=== PATIENT | male | born 1950 | race Caucasian/White ===

== ENCOUNTER 2019-07-21 08:01 | Outpatient (CLI) | payer OTHER, MEDICARE, SELFPAY ==
[2019-07-21 08:22] LABS: Hemoglobin A1C 8.2 % (<5.7)
[2019-07-21 08:25] LABS: Alanine Aminotransferase 29 U/L (4-50); Albumin Level 4.4 g/dL (3.5-5.1); Alkaline Phosphatase 57 U/L (38-126); Aspartate Amino Transferase 34 U/L (17-59); Bilirubin,Total 0.7 mg/dL (0.2-1.3); Blood Urea Nitrogen 13 mg/dL (9-20); Calcium 9.2 mg/dL (8.4-10.2); Carbon Dioxide 28 mmol/L (22-30); Chloride 100 mmol/L (98-107); Cholesterol 133 mg/dL (0-200); Estimated Glomerular Filt Rate > 60; Glucose 165 mg/dL (75-110); HDL Direct 43 mg/dL; Potassium 4.2 mmol/L (3.4-5.0); Sodium 136 mmol/L (137-145); Triglycerides 231 mg/dL (<150)
[2019-07-21 08:36] LABS: LDL Cholesterol Direct 59 mg/dL
== END 2019-07-21 08:02 | disposition home or self-care (01) ==
PROVIDERS: PCP Family Medicine; Visit Provider Family Medicine
DX: E11.65 Type 2 diabetes mellitus with hyperglycemia (principal); E11.9 Type 2 diabetes mellitus without complications; I10 Essential (primary) hypertension
CPT/HCPCS: 36415; 80053; 80061; 83036

== ENCOUNTER 2019-11-18 07:46 | Outpatient (CLI) | payer MEDICARE, SELFPAY ==
[2019-11-18 08:26] LABS: Alanine Aminotransferase 36 U/L (4-50); Albumin Level 4.2 g/dL (3.5-5.1); Alkaline Phosphatase 55 U/L (38-126); Anion Gap 8 mmol/L (8-16); Aspartate Amino Transferase 39 U/L (17-59); Bilirubin,Total 0.6 mg/dL (0.2-1.3); Blood Urea Nitrogen 14 mg/dL (9-20); Calcium 9.1 mg/dL (8.4-10.2); Carbon Dioxide 28 mmol/L (22-30); Chloride 101 mmol/L (98-107); Cholesterol 128 mg/dL (0-200); Estimated Glomerular Filt Rate > 60; Glucose 125 mg/dL (75-110); HDL Direct 39 mg/dL; Potassium 4.3 mmol/L (3.4-5.0); Sodium 137 mmol/L (137-145); Triglycerides 181 mg/dL (<150)
[2019-11-18 08:37] LABS: LDL Cholesterol Direct 59 mg/dL
[2019-11-18 08:55] LABS: Hemoglobin A1C 6.9 % (<5.7)
== END 2019-11-18 07:47 | disposition home or self-care (01) ==
PROVIDERS: PCP Family Medicine; Visit Provider Family Medicine
DX: E11.65 Type 2 diabetes mellitus with hyperglycemia (principal); I10 Essential (primary) hypertension
CPT/HCPCS: 36415; 80053; 80061; 83036

== ENCOUNTER 2020-04-26 08:33 | Outpatient (CLI) | payer MEDICARE, SELFPAY ==
[2020-04-26 09:43] LABS: Hemoglobin 14.3 g/dL (14.0-18.0); Mean Corpuscular HGB Conc 32.5 g/dl (32-36); Mean Corpuscular Hemoglobin 28.5 pg (26-34); Mean Corpuscular Volume 87.6 fl (80-100); Mean Platelet Volume 8.5 fl (7.4-10.4); Platelet Count Result 386 k/mm3 (150-375); Red Blood Count 5.02 M/mm3 (4.6-6.20); White Blood Count 9.9 K/mm3 (4.5-10.0)
[2020-04-26 09:54] LABS: Hemoglobin A1C 6.9 % (<5.7)
[2020-04-26 09:55] LABS: Alanine Aminotransferase 30 U/L (4-50); Albumin Level 4.4 g/dL (3.5-5.1); Alkaline Phosphatase 55 U/L (38-126); Anion Gap 8 mmol/L (8-16); Aspartate Amino Transferase 37 U/L (17-59); Bilirubin,Total 0.5 mg/dL (0.2-1.3); Blood Urea Nitrogen 17 mg/dL (9-20); Calcium 9.4 mg/dL (8.4-10.2); Carbon Dioxide 25 mmol/L (22-30); Chloride 105 mmol/L (98-107); Cholesterol 154 mg/dL (0-200); Estimated Glomerular Filt Rate > 60; Glucose 122 mg/dL (75-110); HDL Direct 49 mg/dL; Potassium 4.5 mmol/L (3.4-5.0); Sodium 138 mmol/L (137-145); Triglycerides 184 mg/dL (<150)
[2020-04-26 10:06] LABS: LDL Cholesterol Direct 74 mg/dL
[2020-04-26 10:11] LABS: Add Urine Microscopic? YES; Appearance Urine Clear (Clear); Bilirubin Urine Negative (Negative); Blood Urine 1+ (Negative); Color Urine Straw (Yellow); Glucose Urine UA 3+ mg/dL (Negative); Ketones Urine Negative (Negative); Leukocyte Esterase Ur Negative LEU/UL (NEGATIVE); Mucus Urine Rare /lpf; Nitrate Urine Negative (Negative); Protein Urine Negative (Negative); RBC Urine 0-2 /hpf (0-2); Specific Grav Ur 1.023 (1.001-1.035); Urobilinogen Urine Negative mg/dL (<2.0); WBC Urine 0-3 /hpf (0-3)
[2020-04-26 10:31] LABS: Creatinine Urine 67.5 mg/dL
[2020-04-26 10:39] LABS: MALB Creatinine Ratio 17.2 mg/g (0-30); Microalbumin Urine Random 11.6 mg/L (0-16.7)
[2020-04-30 19:14] LABS: PSA, Free 0.18 ng/mL; PSA, Total 0.7 ng/mL (<=4.0)
== END 2020-04-26 08:34 | disposition home or self-care (01) ==
PROVIDERS: PCP Family Medicine; Visit Provider Family Medicine
DX: E11.9 Type 2 diabetes mellitus without complications (principal); I11.9 Hypertensive heart disease without heart failure; R35.1 Nocturia; R97.20 Elevated prostate specific antigen [PSA]; Z12.5 Encounter for screening for malignant neoplasm of prostate
CPT/HCPCS: 36415; 80053; 80061; 81001; 82043; 83036; 84153; 84154; 84443; 85027

== ENCOUNTER 2020-08-30 07:18 | Outpatient (CLI) | payer MEDICARE, SELFPAY ==
[2020-08-30 08:21] LABS: Hemoglobin A1C 7.1 % (<5.7)
[2020-08-30 08:22] LABS: Alanine Aminotransferase 27 U/L (4-50); Albumin Level 4.2 g/dL (3.5-5.1); Alkaline Phosphatase 51 U/L (38-126); Anion Gap 12 mmol/L (8-16); Aspartate Amino Transferase 45 U/L (17-59); Bilirubin,Total 0.6 mg/dL (0.2-1.3); Blood Urea Nitrogen 12 mg/dL (9-20); Calcium 9.4 mg/dL (8.4-10.2); Carbon Dioxide 25 mmol/L (22-30); Chloride 106 mmol/L (98-107); Estimated Glomerular Filt Rate > 60; Glucose 126 mg/dL (75-110); Potassium 4.4 mmol/L (3.4-5.0); Sodium 143 mmol/L (137-145)
== END 2020-08-30 07:19 | disposition home or self-care (01) ==
LOC: ANHLAB 07:23
PROVIDERS: PCP Family Medicine; Visit Provider Family Medicine
DX: E11.9 Type 2 diabetes mellitus without complications (principal); I25.10 Atherosclerotic heart disease of native coronary artery without angina pectoris; I11.9 Hypertensive heart disease without heart failure; E78.2 Mixed hyperlipidemia
CPT/HCPCS: 36415; 80053; 83036

== ENCOUNTER 2020-12-28 07:00 | Outpatient (CLI) | payer MEDICARE, SELFPAY ==
[2020-12-28 08:54] LABS: Add Urine Microscopic? YES; Appearance Urine Clear (Clear); Bilirubin Urine Negative (Negative); Blood Urine Negative (Negative); Color Urine Straw (Yellow); Glucose Urine UA 3+ mg/dL (Negative); Ketones Urine Negative (Negative); Leukocyte Esterase Ur Negative LEU/UL (NEGATIVE); Mucus Urine Rare /lpf; Nitrate Urine Negative (Negative); Protein Urine Negative (Negative); RBC Urine 0-2 /hpf (0-2); Specific Grav Ur 1.028 (1.001-1.035); Urobilinogen Urine Negative mg/dL (<2.0); WBC Urine 0-3 /hpf (0-3)
[2020-12-28 09:00] LABS: Hematocrit 44.4 % (42.0-52.0); Hemoglobin 14.1 g/dL (14.0-18.0); Mean Corpuscular HGB Conc 31.8 g/dl (32-36); Mean Corpuscular Hemoglobin 28.9 pg (26-34); Mean Platelet Volume 8.9 fl (7.4-10.4); Platelet Count Result 361 k/mm3 (150-375); Red Blood Count 4.88 M/mm3 (4.6-6.20); Red Cell Distribution Width 14.4 % (11.5-14.5); White Blood Count 9.7 K/mm3 (4.5-10.0)
[2020-12-28 09:13] LABS: Hemoglobin A1C 6.9 % (<5.7)
[2020-12-28 09:16] LABS: Alanine Aminotransferase 31 U/L (4-50); Albumin Level 4.6 g/dL (3.5-5.1); Alkaline Phosphatase 56 U/L (38-126); Anion Gap 9 mmol/L (8-16); Aspartate Amino Transferase 40 U/L (17-59); Bilirubin,Total 0.7 mg/dL (0.2-1.3); Blood Urea Nitrogen 13 mg/dL (9-20); Calcium 9.2 mg/dL (8.4-10.2); Carbon Dioxide 26 mmol/L (22-30); Chloride 105 mmol/L (98-107); Cholesterol 136 mg/dL (0-200); Estimated Glomerular Filt Rate > 60; Glucose 127 mg/dL (65-110); HDL Direct 41 mg/dL; Potassium 3.8 mmol/L (3.4-5.0); Sodium 140 mmol/L (137-145); Triglycerides 207 mg/dL (<150)
[2020-12-28 09:22] LABS: LDL Cholesterol Direct 54 mg/dL
[2020-12-28 09:34] LABS: MALB Creatinine Ratio 23.3 mg/g (0-30); Microalbumin Urine Random 16.1 mg/L (0-16.7)
[2020-12-28 10:27] LABS: Prostate Specific Antigen 0.9 ng/mL (< OR = 4.0)
== END 2020-12-28 07:01 | disposition home or self-care (01) ==
LOC: ANHIMG 07:05
PROVIDERS: PCP Family Medicine; Visit Provider Family Medicine
DX: E11.65 Type 2 diabetes mellitus with hyperglycemia (principal); I11.9 Hypertensive heart disease without heart failure; E78.2 Mixed hyperlipidemia; R35.1 Nocturia; K64.5 Perianal venous thrombosis
CPT/HCPCS: 36415; 80053; 80061; 81001; 82043; 83036; 84153; 84443; 85027

== ENCOUNTER 2021-07-19 07:32 | Outpatient (CLI) | payer MEDICARE, SELFPAY ==
[2021-07-19 08:03] LABS: Alanine Aminotransferase 36 U/L (4-50); Albumin Level 4.3 g/dL (3.5-5.1); Alkaline Phosphatase 63 U/L (38-126); Anion Gap 9 mmol/L (8-16); Aspartate Amino Transferase 50 U/L (17-59); Bilirubin,Total 0.5 mg/dL (0.2-1.3); Blood Urea Nitrogen 16 mg/dL (9-20); Calcium 8.8 mg/dL (8.4-10.2); Carbon Dioxide 25 mmol/L (22-30); Chloride 106 mmol/L (98-107); Estimated Glomerular Filt Rate > 60; Glucose 128 mg/dL (65-110); Potassium 4.1 mmol/L (3.4-5.0); Sodium 140 mmol/L (137-145)
[2021-07-19 08:40] LABS: Hemoglobin A1C 6.8 % (<5.7)
== END 2021-07-19 07:33 | disposition home or self-care (01) ==
PROVIDERS: PCP Family Medicine; Visit Provider Nurse Practitioner Family
DX: E11.9 Type 2 diabetes mellitus without complications (principal); I11.9 Hypertensive heart disease without heart failure
CPT/HCPCS: 36415; 80053; 83036

== ENCOUNTER 2022-01-06 06:50 | Outpatient (CLI) | payer MEDICARE, SELFPAY ==
[2022-01-06 07:39] LABS: Basophils Absolute Auto 0.1 K/mm3 (0.0-0.1); Basophils Percent Auto 1.2 % (0.2-1.2); Eosinophils Absolute Auto 0.4 K/mm3 (0-0.3); Eosinophils Percent Auto 4.4 % (0-4.4); Hematocrit 44.4 % (42.0-52.0); Hemoglobin 14.1 g/dL (14.0-18.0); Immature Granulocyte Absolute 0.03 K/mm3 (0.00-0.031); Immature Granulocyte Percent A 0.3 % (0-0.5); Lymphocytes Absolute Auto 3.09 K/mm3 (0.9-3.2); Lymphocytes Percent Auto 33.6 % (18.3-44.2); Mean Corpuscular HGB Conc 31.8 g/dl (32-36); Mean Corpuscular Hemoglobin 28.4 pg (26-34); Mean Corpuscular Volume 89.3 fl (80-100); Mean Platelet Volume 8.3 fl (7.4-10.4); Monocytes Percent Auto 11.3 % (2.6-8.5); Neutrophils Absolute Auto 4.5 K/mm3 (1.3-6.7); Neutrophils Percent Auto 49.2 % (45.5-73.1); Platelet Count Result 339 k/mm3 (150-375); Red Blood Count 4.97 M/mm3 (4.6-6.20); Red Cell Distribution Width 14.7 % (11.5-14.5); White Blood Count 9.2 K/mm3 (4.5-10.0)
[2022-01-06 07:49] LABS: Alanine Aminotransferase 32 U/L (6-50); Albumin Level 4.4 g/dL (3.5-5.1); Alkaline Phosphatase 56 U/L (38-126); Anion Gap 9 mmol/L (8-16); Aspartate Amino Transferase 38 U/L (17-59); Bilirubin,Total 0.6 mg/dL (0.2-1.3); Blood Urea Nitrogen 19 mg/dL (9-20); Calcium 9.2 mg/dL (8.4-10.2); Carbon Dioxide 25 mmol/L (22-30); Chloride 103 mmol/L (98-107); Cholesterol 130 mg/dL (0-200); Estimated Glomerular Filt Rate > 60; Glucose 101 mg/dL (65-110); HDL Direct 40 mg/dL; Sodium 137 mmol/L (137-145); Triglycerides 191 mg/dL (<150)
[2022-01-06 07:52] LABS: Add Urine Microscopic? YES; Appearance Urine Clear (Clear); Bacteria Urine Trace /hpf; Bilirubin Urine Negative (Negative); Blood Urine Negative (Negative); Color Urine Yellow (Yellow); Glucose Urine UA 3+ mg/dL (Negative); Ketones Urine Negative (Negative); Leukocyte Esterase Ur Negative LEU/UL (NEGATIVE); Mucus Urine Rare /lpf; Nitrate Urine Negative (Negative); Protein Urine Negative (Negative); RBC Urine 0-2 /hpf (0-2); Specific Grav Ur 1.027 (1.001-1.035); Urobilinogen Urine Negative mg/dL (<2.0)
[2022-01-06 08:00] LABS: LDL Cholesterol Direct 56 mg/dL
[2022-01-06 08:13] LABS: Hemoglobin A1C 7.2 % (<5.7)
== END 2022-01-06 06:51 | disposition home or self-care (01) ==
PROVIDERS: PCP Family Medicine; Visit Provider Nurse Practitioner Family
DX: E11.65 Type 2 diabetes mellitus with hyperglycemia (principal); E78.2 Mixed hyperlipidemia; G47.33 Obstructive sleep apnea (adult) (pediatric); I11.9 Hypertensive heart disease without heart failure; Z12.5 Encounter for screening for malignant neoplasm of prostate; E03.9 Hypothyroidism, unspecified
CPT/HCPCS: 36415; 80053; 80061; 81001; 83036; 84153; 84443; 85025; G0103

== ENCOUNTER 2022-06-11 08:28 | Outpatient (CLI) | payer MEDICARE, SELFPAY ==
[2022-06-11 09:29] LABS: Alanine Aminotransferase 30 U/L (6-50); Albumin Level 4.2 g/dL (3.5-5.1); Alkaline Phosphatase 54 U/L (38-126); Anion Gap 9 mmol/L (8-16); Aspartate Amino Transferase 35 U/L (17-59); Bilirubin,Total 0.5 mg/dL (0.2-1.3); Blood Urea Nitrogen 13 mg/dL (9-20); Calcium 8.8 mg/dL (8.4-10.2); Carbon Dioxide 23 mmol/L (22-30); Chloride 106 mmol/L (98-107); Estimated Glomerular Filt Rate > 60; Glucose 112 mg/dL (65-110); Potassium 4.1 mmol/L (3.4-5.0); Sodium 138 mmol/L (137-145)
[2022-06-11 10:29] LABS: Hemoglobin A1C 7.1 % (<5.7)
== END 2022-06-11 08:29 | disposition home or self-care (01) ==
PROVIDERS: PCP Family Medicine; Visit Provider Nurse Practitioner Family
DX: I11.9 Hypertensive heart disease without heart failure (principal); E11.9 Type 2 diabetes mellitus without complications
CPT/HCPCS: 36415; 80053; 83036

== ENCOUNTER 2022-09-24 11:35 | Outpatient (CLI) | payer MEDICARE, SELFPAY ==
[2022-09-24 11:54] LABS: Basophils Absolute Auto 0.1 K/mm3 (0.0-0.1); Basophils Percent Auto 1.2 % (0.2-1.2); Eosinophils Absolute Auto 0.4 K/mm3 (0-0.3); Eosinophils Percent Auto 3.8 % (0-4.4); Hematocrit 35.7 % (42.0-52.0); Hemoglobin 10.7 g/dL (14.0-18.0); Immature Granulocyte Absolute 0.03 K/mm3 (0.00-0.031); Immature Granulocyte Percent A 0.3 % (0-0.5); Lymphocytes Percent Auto 32.8 % (18.3-44.2); Mean Corpuscular Hemoglobin 22.7 pg (26-34); Mean Corpuscular Volume 75.8 fl (80-100); Mean Platelet Volume 7.9 fl (7.4-10.4); Monocytes Absolute Auto 1.2 K/mm3 (0.1-0.6); Monocytes Percent Auto 12.7 % (2.6-8.5); Neutrophils Absolute Auto 4.8 K/mm3 (1.3-6.7); Neutrophils Percent Auto 49.2 % (45.5-73.1); Platelet Count Result 423 k/mm3 (150-375); Red Blood Count 4.71 M/mm3 (4.6-6.20); Red Cell Distribution Width 17.5 % (11.5-14.5); White Blood Count 9.8 K/mm3 (4.5-10.0)
[2022-09-24 12:11] LABS: Alanine Aminotransferase 32 U/L (6-50); Albumin Level 4.4 g/dL (3.5-5.1); Alkaline Phosphatase 53 U/L (38-126); Anion Gap 7 mmol/L (8-16); Aspartate Amino Transferase 42 U/L (17-59); Bilirubin,Total 0.4 mg/dL (0.2-1.3); Blood Urea Nitrogen 13 mg/dL (9-20); Calcium 9.2 mg/dL (8.4-10.2); Carbon Dioxide 28 mmol/L (22-30); Chloride 105 mmol/L (98-107); Estimated Glomerular Filt Rate > 60; Glucose 105 mg/dL (65-110); Potassium 4.5 mmol/L (3.4-5.0); Sodium 140 mmol/L (137-145)
[2022-09-24 12:19] LABS: NT Pro B Type Natriuretic Pept 92 pg/mL (19.9-100)
== END 2022-09-24 11:36 | disposition home or self-care (01) ==
LOC: ANHLAB 11:41
PROVIDERS: PCP Family Medicine; Visit Provider Internal Medicine Cardiovascular Disease
DX: R06.09 Other forms of dyspnea (principal); I25.10 Atherosclerotic heart disease of native coronary artery without angina pectoris
CPT/HCPCS: 36415; 80053; 83880; 84443; 85025

== ENCOUNTER 2022-09-26 08:59 | Outpatient (CLI) | payer MEDICARE, SELFPAY ==
[2022-09-26 09:34] LABS: Alanine Aminotransferase 32 U/L (6-50); Albumin Level 4.5 g/dL (3.5-5.1); Alkaline Phosphatase 55 U/L (38-126); Anion Gap 11 mmol/L (8-16); Aspartate Amino Transferase 50 U/L (17-59); Bilirubin,Total 0.5 mg/dL (0.2-1.3); Blood Urea Nitrogen 12 mg/dL (9-20); Carbon Dioxide 25 mmol/L (22-30); Chloride 102 mmol/L (98-107); Estimated Glomerular Filt Rate > 60; Glucose 145 mg/dL (65-110); Potassium 4.3 mmol/L (3.4-5.0); Sodium 138 mmol/L (137-145)
[2022-09-26 10:08] LABS: Iron 29 ug/dL (49-181)
[2022-09-26 10:18] LABS: Hemoglobin A1C 7.3 % (<5.7)
[2022-09-26 10:19] LABS: Percent Iron Saturation 5 % (20-50)
[2022-09-26 10:44] LABS: Ferritin 5.69 ng/mL (11.1-264)
== END 2022-09-26 09:00 | disposition home or self-care (01) ==
LOC: ANHLAB 09:00
PROVIDERS: PCP Family Medicine; Visit Provider Family Medicine
DX: E11.65 Type 2 diabetes mellitus with hyperglycemia (principal); D64.9 Anemia, unspecified
CPT/HCPCS: 36415; 80053; 82728; 83036; 83540; 83550

== ENCOUNTER 2022-10-27 14:19 | Outpatient (CLI) | payer MEDICARE, SELFPAY ==
--- NOTE | 2022-10-27 23:21 | WPDPFTINT ---
PFT Procedure Performed PFT Procedure Performed Spirometry with Pre/Post Bronchodilator Plethysmography (Lung Vol) Diffusing Cap (DLCO) Flow Vol Loop PFT Interpretation DOS: 10/27/2022 REQUESTING: Mian Mehta MD REASON FOR TESTING: shortness of breath PULMONARY FUNCTION TESTS Results are reliable and reproducible. Spirometry: FEV1 2.07 L, 66%, mildly decreased. FVC 2.66 L, 69%. FEV1/FVC = 72%, normal. After bronchodilator, FEV1 2.23 L, 71%, 8% increase in FEV1. After bronchodilator, FVC is 2.91 L, 71%,2% increase. FEV1/FVC = 77%. Lung volumes: TLC 2.96 L, 77%, low end of normal. RV 2.26, 95%, normal. RV/TLC=43%, upper limits normal. Normal airway resistance, 124%. Diffusion: DLCO is 17.2, 66%, mildly decreased. DLCO/VA 3.93, 96%, normal. Flow volume loop: Restrictive pattern. IMPRESSION: This study shows no obstruction; the TLC is on the very low end of normal trending towards restriction. There is a mild diffusion impairment that corrects for alveolar volume. Lack of response to bronchodilator should not preclude use if clinically indicated. History reviewed; he has never smoked. Consider CXR if not performed recently. Rosario Gonzalez MD
== END 2022-10-27 14:20 | disposition home or self-care (01) ==
PROVIDERS: PCP Family Medicine; Visit Provider Family Medicine
DX: R06.09 Other forms of dyspnea (principal)
CPT/HCPCS: 94060; 94726; 94729

== ENCOUNTER 2022-11-19 08:17 | Outpatient (CLI) | payer MEDICARE, SELFPAY ==
[2022-11-19 09:04] LABS: Hematocrit 38.3 % (42.0-52.0); Hemoglobin 11.1 g/dL (14.0-18.0); Mean Corpuscular Hemoglobin 22.4 pg (26-34); Mean Corpuscular Volume 77.4 fl (80-100); Mean Platelet Volume 8.7 fl (7.4-10.4); Platelet Count Result 437 k/mm3 (150-375); Red Blood Count 4.95 M/mm3 (4.6-6.20); Red Cell Distribution Width 20.6 % (11.5-14.5)
[2022-11-19 09:42] LABS: Iron 39 ug/dL (49-181)
[2022-11-19 09:52] LABS: Percent Iron Saturation 7 % (20-50)
== END 2022-11-19 08:18 | disposition home or self-care (01) ==
LOC: ANHLAB 08:19
PROVIDERS: PCP Family Medicine; Visit Provider Family Medicine
DX: D50.9 Iron deficiency anemia, unspecified (principal); K64.5 Perianal venous thrombosis
CPT/HCPCS: 36415; 83540; 83550; 85027

== ENCOUNTER 2022-12-31 03:23 | Day surgery (SDC) | payer MEDICARE, SELFPAY ==
--- NOTE | 2022-11-11 16:14 | PC.NURSE ---
Discussed with pt. regarding Dr. Thorne wanting to see Pt. 12/03/2022 prior to clearance and holding xarelto and plavix for procedure. I did explain to patient he has blood work sched for 12/20/22 and if this is lower I will talk to Dr. Ventura and Dr. Thorne for best way to proceed. Pt is rescheduled from 11/21/2022 to 12/17/2022 for now.
--- NOTE | 2022-11-20 09:25 | PC.NURSE ---
Spoke with Lina in Dr. Mehta's office regarding postponing EGD/COLON until pt is seen by Dr. Thorne and cleared to hold anticoagulants for procedure. Alerted that pts. labs ordered for 11/19/2022 are in the EMR. She will notify Dr. Mehta.
[2022-12-09 15:47] VITALS: BMI 34.0
--- NOTE | 2022-12-12 13:20 | PC.NURSE ---
Pt will hold levi and Pancho starting Thursday12/15/2022 until he hears from us if anesthesia is okay to proceed after reviewing chart.
--- NOTE | 2022-12-15 09:31 | SUR.PREOP ---
Spoke with Dr Grijalva regarding patients cardiac history. states the patient need further cardiac workup prior to EGD and colonoscopy. I called the patient and informed him to restart his blood thinner today and may eat and drink as normal. I called and left a message with Dr sena's office regarding anesthesia request.
--- NOTE | 2022-12-30 09:49 | PC.NURSE ---
late entry 12/25/2022 Chart was reviewed with Dr. Ventura- after speaking with Dr. Thorne, he wants to proceed with procedures prior to heart cath. and will document this. I spoke with patient and informed he will proceed with egd/colon on 12/31/2022. He is to stop his iron 5 days prior to the procedure and Xarelto 2 days prior with the last dose on 12/28/2022.
--- NOTE | 2022-12-30 16:31 | PM.HPGS ---
History of Present Illness History of Present Illness Consent: Risks, benefits, and alternatives have been discussed and questions answered. Patient agrees to proceed with procedure. Chief complaint: Iron Deficiency Anemia Narrative: Onofre Hill is a 72 year old male whose hemoglobin has dropped from 14 last year to 10.7 this year. His iron levels are low and only 7% saturation. Review of Systems Review of Systems: All systems reviewed & are unremarkable except as noted in HPI and below PMFSH Past Medical History Medical History Controlled diabetes mellitus Diabetes Heart attack Heart disease High cholesterol HTN (hypertension) Long-term insulin use Osteoarthritis of ankle Surgical History Surgical History H/O hernia repair H/O knee surgery History of hip replacement History of open heart surgery Family History Family History Father Family history of diabetes mellitus in first degree relative Family history of coronary artery disease Heart attack History of open heart surgery Cancer Diabetes mellitus Mother Family history of diabetes mellitus in first degree relative Kidney failure CHF (congestive heart failure) Unknown Diabetes mellitus Heart disease Cerebrovascular accident Hypertension Kidney disease Social History Social History Smoking status: Never smoker Second hand tobacco smoke exposure: No Alcohol intake: current Alcohol use details: rare Substance use: never Substance use type: does not use Living arrangements: with family Additional living arrangements comments: daughter Occupation/Education: retired Gender identity (if verbalized by the patient): Male Sexual Orientation (if Verbalized by the Patient): Straight or Heterosexual Spiritual care concerns: No Meds Home Medications and Allergies Home Medications Medication Instructions Recorded Confirmed Type lancets (Microlet Lancet) #200 ea 05/09/19 12/31/22 Rx blood-glucose meter #1 ea 10/27/19 12/31/22 Rx blood sugar diagnostic (True See Rx Instructions .Route 03/01/21 12/31/22 Rx Metrix Glucose Test Strip) .COMPLEX #100 ea insulin syringe-needle U-100 1 mL #100 ea 08/22/21 12/31/22 Rx 31 gauge x 5/16 (BD Insulin Syringe Ultra-Fine) insulin glargine 100 unit/mL (3 68 unit (0.68 mL) subcut QPM #15 mL 02/28/22 12/31/22 Rx mL) subcutaneous pen (Basaglar KwikPen U-100 Insulin) metformin 500 mg tablet,extended 2,000 mg PO QPM #360 tabs 04/15/22 12/31/22 Rx release 24 hr blood sugar diagnostic (Blood #100 ea 06/17/22 12/31/22 Rx Glucose Test strips) pen needle, diabetic 31 gauge x #100 ea 06/23/22 12/31/22 Rx 5/16 (Comfort EZ Pen [place]) empagliflozin 25 mg tablet 25 mg PO DAILY 08/27/22 12/31/22 History (Jardiance) metoprolol tartrate 25 mg tablet See Rx Instructions .Route 10/20/22 12/31/22 Rx .COMPLEX #60 tabs ferrous fumarate 324 mg (106 mg 324 mg PO DAILY #30 tabs 10/22/22 12/31/22 Rx iron) tablet sacubitril 24 mg-valsartan 26 mg 1 tablet PO BID 10/22/22 12/31/22 History tablet (Entresto) aspirin 81 mg tablet 81 mg PO DAILY 12/09/22 12/31/22 History atorvastatin 80 mg tablet 80 mg PO HS 12/09/22 12/31/22 History cetirizine 10 mg tablet (Zyrtec) 10 mg PO DAILY 12/09/22 12/31/22 History rivaroxaban 20 mg tablet (Xarelto) 20 mg PO QPM 12/09/22 12/31/22 History Allergies Allergy/AdvReac Type Severity Reaction Status Date / Time No Known Allergies Allergy Verified 12/31/22 12:18 Exam Const: General: alert Orientation/consciousness: patient oriented x3 Resp: Auscultation: clear to auscultation bilaterally Cardio: Rhythm: regular rhythm GI: GI Palp: Yes Soft to palpation and No Tenderness to palpation present (GI) Neuro:
--- NOTE | 2022-12-31 09:06 | PC.NURSE ---
pt called this morning stating his blood sugar is 79 and he took his insulin last evening. I talked to anesthesia Dr. Grey and he okayed for pt to drink 6 oz apple juice with a tsp. of sugar, recheck blood sugar in 1-2 hours.
[2022-12-31 12:22] VITALS: BP 133/58; PULSE 74; RESP 18; TEMP 36.4; O2SAT 97
[2022-12-31 12:37] LABS: Glucose Point of Care 90 mg/dl (65-105)
[2022-12-31] MEDS: LACTATED RINGERS 1,000 ML 150 ML IV CONT (12:37)
--- NOTE | 2022-12-31 13:17 | WPDANESEPPF ---
Anes - Initial Pre Proc Eval Procedure: Operation Date: 12/31/22 13:30 Proposed Procedures p Esophagogastroduodenoscopy & Colonoscopy - Warren Ventura MD Date/Time: 12/31/22 13:17 Surgeon: Warren Ventura MD Pre Op Diagnosis: Iron Deficiency Anemia Patient Data Age: 72 Gender: M Height: 1.75 m Weight: 107 kg Last Vital Signs Temp 97.6 F 12/31/22 12:22 Pulse 74 12/31/22 12:22 Resp 18 12/31/22 12:22 BP 133/58 L 12/31/22 12:22 Pulse Ox 97 12/31/22 12:22 O2 Del Method Room Air 12/31/22 12:22 Allergies Allergy/AdvReac Type Severity Reaction Status Date / Time No Known Allergies Allergy Verified 12/31/22 12:18 Home Medications Medication Instructions Recorded Confirmed Type lancets (Microlet Lancet) #200 ea 05/09/19 12/31/22 Rx blood-glucose meter #1 ea 10/27/19 12/31/22 Rx blood sugar diagnostic (True See Rx Instructions .Route 03/01/21 12/31/22 Rx Metrix Glucose Test Strip) .COMPLEX #100 ea insulin syringe-needle U-100 1 mL #100 ea 08/22/21 12/31/22 Rx 31 gauge x 5/16 (BD Insulin Syringe Ultra-Fine) insulin glargine 100 unit/mL (3 68 unit (0.68 mL) subcut QPM #15 mL 02/28/22 12/31/22 Rx mL) subcutaneous pen (Basaglar KwikPen U-100 Insulin) metformin 500 mg tablet,extended 2,000 mg PO QPM #360 tabs 04/15/22 12/31/22 Rx release 24 hr blood sugar diagnostic (Blood #100 ea 06/17/22 12/31/22 Rx Glucose Test strips) pen needle, diabetic 31 gauge x #100 ea 06/23/22 12/31/22 Rx 5/16 (Comfort EZ Pen [place]) empagliflozin 25 mg tablet 25 mg PO DAILY 08/27/22 12/31/22 History (Jardiance) metoprolol tartrate 25 mg tablet See Rx Instructions .Route 10/20/22 12/31/22 Rx .COMPLEX #60 tabs ferrous fumarate 324 mg (106 mg 324 mg PO DAILY #30 tabs 10/22/22 12/31/22 Rx iron) tablet sacubitril 24 mg-valsartan 26 mg 1 tablet PO BID 10/22/22 12/31/22 History tablet (Entresto) aspirin 81 mg tablet 81 mg PO DAILY 12/09/22 12/31/22 History atorvastatin 80 mg tablet 80 mg PO HS 12/09/22 12/31/22 History cetirizine 10 mg tablet (Zyrtec) 10 mg PO DAILY 12/09/22 12/31/22 History rivaroxaban 20 mg tablet (Xarelto) 20 mg PO QPM 12/09/22 12/31/22 History Laboratory Tests 12/31/22 12:34 POC Capillary Glucose 90 mg/dl (65-105) Patient hx anesthesia problems: none Family hx anesthesia problems: none Results Review: All pre-operative results and documents have been reviewed as part of the pre-operative evaluation. [facility] Past Medical History Medical History Controlled diabetes mellitus Diabetes Heart attack Heart disease High cholesterol HTN (hypertension) Long-term insulin use Osteoarthritis of ankle Surgical History Surgical History H/O hernia repair H/O knee surgery History of hip replacement History of open heart surgery Family History Family History Father Family history of diabetes mellitus in first degree relative Family history of coronary artery disease Heart attack History of open heart surgery Cancer Diabetes mellitus Mother Family history of diabetes mellitus in first degree relative Kidney failure CHF (congestive heart failure) Unknown Diabetes mellitus Heart disease Cerebrovascular accident Hypertension Kidney disease Social History Social History Smoking status: Never smoker Second hand tobacco smoke exposure: No Alcohol intake: current Alcohol use details: rare Substance use: never Substance use type: does not use Living arrangements: with family Additional living arrangements comments: daughter Occupation/Education: retired Gender identity (if verbalized by the patient): Male Sexual Orientation (if Verbalized by the Patient): Straight or Heterosexual Spirit
--- NOTE | 2022-12-31 13:45 | SUR.OPER ---
egd ended at 1339 and colonoscopy started at 1345.
[2022-12-31 14:01] VITALS: BP 87/35; PULSE 88; RESP 26; O2SAT 97
[2022-12-31 14:11] VITALS: BP 90/51; PULSE 71; RESP 15; O2SAT 98
[2022-12-31 14:18] LABS: Glucose Point of Care 80 mg/dl (65-105)
[2022-12-31 14:21] VITALS: BP 107/62; PULSE 67; RESP 13; O2SAT 99
== END 2022-12-31 14:30 | disposition home or self-care (01) ==
PROVIDERS: PCP Family Medicine; Visit Provider Internal Medicine Gastroenterology
PROC: 0DJ08ZZ Inspection of Upper Intestinal Tract, Via Natural or Artificial Opening Endoscopic (ICD-10-PCS; CPT 43235; principal; 2022-12-31 13:30)
DX: D50.9 Iron deficiency anemia, unspecified (principal); K29.70 Gastritis, unspecified, without bleeding; K57.30 Diverticulosis of large intestine without perforation or abscess without bleeding; D12.4 Benign neoplasm of descending colon; E11.9 Type 2 diabetes mellitus without complications; E78.00 Pure hypercholesterolemia, unspecified; I10 Essential (primary) hypertension; Z79.4 Long term (current) use of insulin; Z79.84 Long term (current) use of oral hypoglycemic drugs; Z79.82 Long term (current) use of aspirin; Z79.01 Long term (current) use of anticoagulants; E66.9 Obesity, unspecified; Z68.34 Body mass index [BMI] 34.0-34.9, adult
CPT/HCPCS: 43239; G0121; 82948; 87081; 88305; J2371; J2704; J7120

== ENCOUNTER 2023-01-16 08:24 | Outpatient (CLI) | payer MEDICARE, SELFPAY ==
[2023-01-16 08:57] LABS: Hematocrit 41.3 % (42.0-52.0); Hemoglobin 12.2 g/dL (14.0-18.0); Mean Corpuscular HGB Conc 29.5 g/dl (32-36); Mean Corpuscular Volume 81.1 fl (80-100); Mean Platelet Volume 8.9 fl (7.4-10.4); Platelet Count Result 388 k/mm3 (150-375); Red Blood Count 5.09 M/mm3 (4.6-6.20); Red Cell Distribution Width 21.4 % (11.5-14.5); White Blood Count 8.6 K/mm3 (4.5-10.0)
[2023-01-16 09:06] LABS: Alanine Aminotransferase 26 U/L (6-50); Albumin Level 4.2 g/dL (3.5-5.1); Alkaline Phosphatase 53 U/L (38-126); Anion Gap 10 mmol/L (8-16); Aspartate Amino Transferase 30 U/L (17-59); Bilirubin,Total 0.7 mg/dL (0.2-1.3); Blood Urea Nitrogen 9 mg/dL (9-20); Carbon Dioxide 24 mmol/L (22-30); Chloride 106 mmol/L (98-107); Estimated Glomerular Filt Rate > 60; Glucose 110 mg/dL (65-110); Potassium 3.8 mmol/L (3.4-5.0); Sodium 140 mmol/L (137-145)
[2023-01-16 09:07] LABS: Hemoglobin A1C 6.7 % (<5.7)
[2023-01-16 09:25] LABS: Iron 102 ug/dL (49-181)
[2023-01-16 09:35] LABS: Percent Iron Saturation 22 % (20-50)
== END 2023-01-16 08:25 | disposition home or self-care (01) ==
LOC: ANHLAB 08:28
PROVIDERS: PCP Family Medicine; Visit Provider Family Medicine
DX: K64.5 Perianal venous thrombosis (principal); E11.65 Type 2 diabetes mellitus with hyperglycemia; D50.9 Iron deficiency anemia, unspecified
CPT/HCPCS: 36415; 80053; 83036; 83540; 83550; 85027

== ENCOUNTER 2023-06-04 08:46 | Outpatient (CLI) | payer MEDICARE, SELFPAY ==
[2023-06-04 09:26] LABS: Hematocrit 47.5 % (42.0-52.0); Hemoglobin 14.9 g/dL (14.0-18.0); Mean Corpuscular HGB Conc 31.4 g/dl (32-36); Mean Corpuscular Hemoglobin 28.6 pg (26-34); Mean Corpuscular Volume 91.2 fl (80-100); Mean Platelet Volume 8.3 fl (7.4-10.4); Platelet Count Result 325 k/mm3 (150-375); Red Blood Count 5.21 M/mm3 (4.6-6.20); Red Cell Distribution Width 14.6 % (11.5-14.5); White Blood Count 8.9 K/mm3 (4.5-10.0)
[2023-06-04 09:35] LABS: Alanine Aminotransferase 27 U/L (6-50); Albumin Level 4.3 g/dL (3.5-5.1); Alkaline Phosphatase 53 U/L (38-126); Anion Gap 8 mmol/L (8-16); Aspartate Amino Transferase 33 U/L (17-59); Blood Urea Nitrogen 9 mg/dL (9-20); Calcium 9.2 mg/dL (8.4-10.2); Carbon Dioxide 28 mmol/L (22-30); Chloride 105 mmol/L (98-107); Cholesterol 119 mg/dL (0-200); Estimated Glomerular Filt Rate > 60; Glucose 125 mg/dL (65-110); HDL Direct 43 mg/dL; Potassium 4.1 mmol/L (3.4-5.0); Sodium 141 mmol/L (137-145); Triglycerides 187 mg/dL (<150)
[2023-06-04 09:38] LABS: Appearance Urine Clear (Clear); Bilirubin Urine Negative (Negative); Blood Urine Negative (Negative); Color Urine Yellow (Yellow); Glucose Urine UA 3+ mg/dL (Negative); Ketones Urine Negative (Negative); Leukocyte Esterase Ur Negative LEU/UL (Negative); Nitrate Urine Negative (Negative); Protein Urine Negative (Negative); Urobilinogen Urine 0.2 mg/dL (<2.0)
[2023-06-04 09:43] LABS: MALB Creatinine Ratio 32.2 mg/g (0-30); Microalbumin Urine Random 20.9 mg/L (0-16.7)
[2023-06-04 09:46] LABS: LDL Cholesterol Direct 57 mg/dL
[2023-06-04 09:48] LABS: Hemoglobin A1C 7.3 % (<5.7)
[2023-06-04 09:53] LABS: Specific Grav Ur 1.035 (1.001-1.035)
[2023-06-04 09:54] LABS: Add Urine Microscopic? NO
[2023-06-04 10:02] LABS: Iron 118 ug/dL (49-181)
[2023-06-04 10:04] LABS: Prostate Specific Antigen 1.2 ng/mL (< OR = 4.0)
[2023-06-04 10:12] LABS: Percent Iron Saturation 32 % (20-50)
== END 2023-06-04 08:47 | disposition home or self-care (01) ==
LOC: ANHLAB 08:58
PROVIDERS: PCP Family Medicine; Visit Provider Physician Assistant
DX: D50.9 Iron deficiency anemia, unspecified (principal); E11.65 Type 2 diabetes mellitus with hyperglycemia; E11.9 Type 2 diabetes mellitus without complications; I11.9 Hypertensive heart disease without heart failure; Z00.00 Encounter for general adult medical examination without abnormal findings; Z12.5 Encounter for screening for malignant neoplasm of prostate; K64.5 Perianal venous thrombosis
CPT/HCPCS: 36415; 80053; 80061; 82043; 82728; 83036; 83540; 83550; 84153; 84443; 85027; G0103

== ENCOUNTER 2023-06-20 11:02 | Emergency (ER) | payer MEDICARE, SELFPAY ==
--- NOTE | ~2023-06-20 | XR_ITS ---
XR knee LT min 4V DATE: 06/20/2023 12:12 INDICATION: [place] pop yesterday. Pain down the hamstring. TECHNIQUE: 4 views COMPARISON: 01/12/2015 left femur FINDINGS: Status post left total knee arthroplasty with with patellar resurfacing. No recent fracture or dislocation or any periosteal reaction or bone destruction is evident. Femoral, popliteal and trifurcation artery calcifications. IMPRESSION: Status post left total knee arthroplasty Reviewed, dictated and finalized at location A.
--- NOTE | ~2023-06-20 | XR_ITS ---
XR hip LT 2V w AP pelvis DATE: 06/20/2023 11:44 INDICATION: Left hip and thigh pain. No recent trauma. TECHNIQUE: AP pelvis. AP and lateral views of left hip. COMPARISON: left hip FINDINGS: Severe degenerative disc disease at L4-5 and L5-S1. Chronic slight offset at the left pubic symphysis. No pelvic fracture or bone destruction is detected. Normal alignment at the sacroiliac joints. Status post bilateral total hip arthroplasty. There is some heterotopic ossification of the soft tiss ues at both hip areas. No left hip fracture, dislocation or bone destruction is detected. IMPRESSION: Status post bilateral total hip arthroplasty Severe degenerative disease at L4-5 and L5-S1 No pelvic or recent left hip fracture or dislocation Reviewed, dictated and finalized at location A.
--- NOTE | ~2023-06-20 | XR_ITS ---
XR femur LT min 2V DATE: 06/20/2023 12:12 INDICATION: Pain radiating down hamstring. [place]ulk a pop yesterday TECHNIQUE: AP and lateral views of left femur COMPARISON: 06/20/2023 left hip FINDINGS: There is approximately 3 x 6 mm bony density at the posterolateral aspect of the greater tr ochanter which may represent an avulsion fracture, recent or remote. This is not evident on the 2023 left hip radiographs because of the difference in projection on the lateral views. Otherwise no recent fracture or dislocation of the left femur is noted. Status post left total hip arthroplasty and left total knee arthroplasty with patellar resurfacing. N o periosteal reaction or bone destruction of the left femur. There is atherosclerotic calcification of the left femoral artery. IMPRESSION: Approximately 3 x 6 mm cortical avulsion fracture of undetermined age at the posterolater al aspect of the left femur. Recommend clinical correlation Status post left total hip arthroplasty Status post left knee total arthroplasty with patellar resurfacing Reviewed, dictated and finalized at location A. IMPRESSION: Approximately 3 x 6 mm cortical avulsion fracture of undetermined a ge at the posterolateral aspect of the left femur. Recommend clinical correlati on Status post left total hip arthroplasty Status post left knee total arthroplasty with patellar resurfacing
[2023-06-20 11:14] VITALS: BP 122/62; PULSE 85; RESP 20; TEMP 36.3; O2SAT 97
[2023-06-20] MEDS: CYCLOBENZAPRINE HCL 10 MG TABLET PO (12:24)
--- NOTE | 2023-06-20 13:32 | ED.LOWEXIN ---
HPI - Extremity Injury (Lower) General Chief Complaint: Extremity Injury, Lower <Princess Cuenca PA-C - Last Filed: 06/20/23 14:06> Stated Complaint: left hip pain <MICHAELLE Campos Last Filed: 06/20/23 14:06> Time Seen by Provider: 06/20/23 11:31 <Princess Cuenca PA-C - Last Filed: 06/20/23 14:06> History of Present Illness HPI Narrative: 72-year-old male presents to emergency department for left leg pain that started last night. Patient states he was extending his leg attempting to take his sock off when he felt a pop in his posterior leg. States that occurred just beneath his gluteus kenroy he now is having pain along his hamstrings into From his proximal posterior glute to his knee. He is able to ambulate. Denies known bruising or swelling. <Princess Cuenca PA-C - Last Filed: 06/20/23 14:06> Related Data Home Medications: Home Medications Medication Instructions Recorded Confirmed empagliflozin 25 mg tablet 25 mg PO DAILY 08/27/22 06/08/23 (Jardiance) sacubitril 24 mg-valsartan 26 mg 1 tablet PO BID 10/22/22 06/08/23 tablet (Entresto) aspirin 81 mg tablet 81 mg PO DAILY 12/09/22 06/08/23 atorvastatin 80 mg tablet 80 mg PO HS 12/09/22 06/08/23 cetirizine 10 mg tablet (Zyrtec) 10 mg PO DAILY 12/09/22 06/08/23 rivaroxaban 20 mg tablet (Xarelto) 20 mg PO QPM 12/09/22 06/08/23 <MICHAELLE Campos Last Filed: 06/20/23 14:06> Allergies/Adverse Reactions: Allergies Allergy/AdvReac Type Severity Reaction Status Date / Time No Known Allergies Allergy Verified 06/08/23 13:27 <MICHAELLE Campos Last Filed: 06/20/23 14:06> Review of Systems Review of Systems: CONSTITUTIONAL: Denies fever, chills, or sweats. EYES: Denies visual changes, redness, or discharge. ENT: Denies rhinorrhea, congestion, sore throat, or otalgia. CARDIOVASCULAR: Denies chest pain, palpitations, or edema. RESPIRATORY: Denies cough or dyspnea. GASTROINTESTINAL: Denies abdominal pain, nausea, vomiting, or diarrhea. GENITOURINARY: Denies dysuria or hematuria. SKIN: Denies rash or itching. MUSCULOSKELETAL: See HPI NEUROLOGIC: Denies headache, numbness, or weakness. PSYCHIATRIC: Denies anxiety or depression. <Princess Cuenca PA-C - Last Filed: 06/20/23 14:06> [facility] Past Medical History Medical History: Medical History Controlled diabetes mellitus Diabetes Heart attack Heart disease High cholesterol HTN (hypertension) Long-term insulin use Osteoarthritis of ankle <Princess Cuenca PA-C - Last Filed: 06/20/23 14:06> Surgical History Surgical History: Surgical History H/O hernia repair H/O knee surgery History of hip replacement History of open heart surgery <Princess Cuenca PA-C - Last Filed: 06/20/23 14:06> Family History Family History: Family History Father Family history of diabetes mellitus in first degree relative Family history of coronary artery disease Heart attack History of open heart surgery Cancer Diabetes mellitus Mother Family history of diabetes mellitus in first degree relative Kidney failure CHF (congestive heart failure) Unknown Diabetes mellitus Heart disease Cerebrovascular accident Hypertension Kidney disease <Princess Cuenca PA-C - Last Filed: 06/20/23 14:06> Social History Social History: Social History Smoking status: Never smoker Second hand tobacco smoke exposure: No Alcohol intake: current Alcohol use details: rare Substance use: never Substance use type: does not use Living arrangements: with family Additional living arrangements comments: daughter Occupation/Education: retired Gender identity (if verbalized by the patient):
[2023-06-20] MEDS: HYDROcodone/acetaminophen (*CRX) 5-325 MG TABLET 1 TAB PO (14:00)
[2023-06-20 14:08] VITALS: BP 115/66; PULSE 84; RESP 20; O2SAT 96
== END 2023-06-20 14:09 | disposition home or self-care (01) ==
PROVIDERS: Emergency Provider Physician Assistant; PCP Family Medicine
DX: S72.112A Displaced fracture of greater trochanter of left femur, initial encounter for closed fracture (principal); X50.0XXA Overexertion from strenuous movement or load, initial encounter; E11.9 Type 2 diabetes mellitus without complications; I11.9 Hypertensive heart disease without heart failure; E78.00 Pure hypercholesterolemia, unspecified; Z79.4 Long term (current) use of insulin; Z79.84 Long term (current) use of oral hypoglycemic drugs; Z79.82 Long term (current) use of aspirin; Z79.01 Long term (current) use of anticoagulants
CPT/HCPCS: 73502; 73552; 73564; 99284; A9270

== ENCOUNTER 2023-08-03 09:22 | Outpatient (CLI) | payer MEDICARE, SELFPAY ==
[2023-08-03 10:00] LABS: Basophils Absolute Auto 0.1 K/mm3 (0.0-0.1); Basophils Percent Auto 0.8 % (0.2-1.2); Eosinophils Absolute Auto 0.4 K/mm3 (0-0.3); Eosinophils Percent Auto 3.9 % (0-4.4); Hematocrit 50.4 % (42.0-52.0); Hemoglobin 15.7 g/dL (14.0-18.0); Immature Granulocyte Absolute 0.03 K/mm3 (0.00-0.031); Immature Granulocyte Percent A 0.3 % (0-0.5); Lymphocytes Absolute Auto 2.57 K/mm3 (0.9-3.2); Lymphocytes Percent Auto 24.1 % (18.3-44.2); Mean Corpuscular HGB Conc 31.2 g/dl (32-36); Mean Corpuscular Hemoglobin 29.1 pg (26-34); Mean Corpuscular Volume 93.3 fl (80-100); Mean Platelet Volume 8.4 fl (7.4-10.4); Monocytes Absolute Auto 0.9 K/mm3 (0.1-0.6); Monocytes Percent Auto 8.4 % (2.6-8.5); Neutrophils Absolute Auto 6.7 K/mm3 (1.3-6.7); Neutrophils Percent Auto 62.5 % (45.5-73.1); Platelet Count Result 368 k/mm3 (150-375); Red Cell Distribution Width 13.9 % (11.5-14.5); White Blood Count 10.7 K/mm3 (4.5-10.0)
[2023-08-03 10:11] LABS: Alanine Aminotransferase 25 U/L (6-50); Albumin Level 4.6 g/dL (3.5-5.1); Alkaline Phosphatase 59 U/L (38-126); Anion Gap 7 mmol/L (4-12); Aspartate Amino Transferase 28 U/L (17-59); Bilirubin,Total 0.9 mg/dL (0.2-1.3); Blood Urea Nitrogen 12 mg/dL (9-20); Calcium 9.5 mg/dL (8.4-10.2); Carbon Dioxide 29 mmol/L (22-30); Chloride 105 mmol/L (98-107); Estimated Glomerular Filt Rate > 60; Glucose 117 mg/dL (65-110); Potassium 3.9 mmol/L (3.4-5.0); Sodium 141 mmol/L (137-145)
== END 2023-08-03 09:23 | disposition home or self-care (01) ==
LOC: ANHLAB 09:25
PROVIDERS: PCP Family Medicine; Visit Provider Internal Medicine Cardiovascular Disease
DX: I25.10 Atherosclerotic heart disease of native coronary artery without angina pectoris (principal)
CPT/HCPCS: 36415; 80053; 85025

== ENCOUNTER 2023-09-09 08:04 | Outpatient (CLI) | payer MEDICARE, SELFPAY ==
[2023-09-09 08:53] LABS: Anion Gap 12 mmol/L (4-12); Blood Urea Nitrogen 12 mg/dL (9-20); Carbon Dioxide 22 mmol/L (22-30); Chloride 106 mmol/L (98-107); Estimated Glomerular Filt Rate > 60; Glucose 153 mg/dL (65-110); Potassium 3.8 mmol/L (3.4-5.0); Sodium 140 mmol/L (137-145)
[2023-09-09 09:01] LABS: NT Pro B Type Natriuretic Pept 123 pg/mL (19.9-100)
== END 2023-09-09 08:05 | disposition home or self-care (01) ==
LOC: ANHLAB 08:07
PROVIDERS: PCP Family Medicine; Visit Provider Internal Medicine Cardiovascular Disease
DX: I50.32 Chronic diastolic (congestive) heart failure (principal)
CPT/HCPCS: 36415; 80048; 83880

== ENCOUNTER 2023-10-06 08:10 | Outpatient (CLI) | payer MEDICARE, SELFPAY ==
[2023-10-06 08:56] LABS: Hematocrit 48.8 % (42.0-52.0); Hemoglobin 15.4 g/dL (14.0-18.0); Mean Corpuscular HGB Conc 31.6 g/dl (32-36); Mean Corpuscular Hemoglobin 29.1 pg (26-34); Mean Corpuscular Volume 92.2 fl (80-100); Mean Platelet Volume 8.4 fl (7.4-10.4); Platelet Count Result 355 k/mm3 (150-375); Red Blood Count 5.29 M/mm3 (4.6-6.20); White Blood Count 8.6 K/mm3 (4.5-10.0)
[2023-10-06 09:11] LABS: Alanine Aminotransferase 23 U/L (6-50); Albumin Level 4.6 g/dL (3.5-5.1); Alkaline Phosphatase 45 U/L (38-126); Anion Gap 14 mmol/L (4-12); Aspartate Amino Transferase 34 U/L (17-59); Bilirubin,Total 0.8 mg/dL (0.2-1.3); Blood Urea Nitrogen 16 mg/dL (9-20); Calcium 9.1 mg/dL (8.4-10.2); Carbon Dioxide 25 mmol/L (22-30); Chloride 100 mmol/L (98-107); Estimated Glomerular Filt Rate > 60; Glucose 108 mg/dL (65-110); Sodium 139 mmol/L (137-145)
[2023-10-06 09:46] LABS: Hemoglobin A1C 7.2 % (<5.7)
== END 2023-10-06 08:11 | disposition home or self-care (01) ==
PROVIDERS: PCP Family Medicine; Visit Provider Family Medicine
DX: E11.65 Type 2 diabetes mellitus with hyperglycemia (principal); D50.9 Iron deficiency anemia, unspecified; K64.5 Perianal venous thrombosis; I11.9 Hypertensive heart disease without heart failure
CPT/HCPCS: 36415; 80053; 83036; 85027

== ENCOUNTER 2024-01-25 08:34 | Outpatient (CLI) | payer MEDICARE, SELFPAY ==
[2024-01-25 09:22] LABS: Alanine Aminotransferase 25 U/L (6-50); Albumin Level 4.7 g/dL (3.5-5.1); Alkaline Phosphatase 39 U/L (38-126); Anion Gap 11 mmol/L (4-12); Aspartate Amino Transferase 43 U/L (17-59); Bilirubin,Total 1.1 mg/dL (0.2-1.3); Blood Urea Nitrogen 14 mg/dL (9-20); Calcium 9.6 mg/dL (8.4-10.2); Carbon Dioxide 26 mmol/L (22-30); Chloride 102 mmol/L (98-107); Estimated Glomerular Filt Rate > 60; Glucose 125 mg/dL (65-110); Potassium 4.6 mmol/L (3.4-5.0); Sodium 139 mmol/L (137-145)
== END 2024-01-25 08:35 | disposition home or self-care (01) ==
LOC: ANHLAB 08:36
PROVIDERS: PCP Family Medicine; Visit Provider Physician Assistant
DX: I11.9 Hypertensive heart disease without heart failure (principal); E11.65 Type 2 diabetes mellitus with hyperglycemia
CPT/HCPCS: 36415; 80053; 83036

== ENCOUNTER 2024-03-21 14:10 | Outpatient (CLI) | payer MEDICARE, SELFPAY ==
--- NOTE | ~2024-03-21 | CT_ITS ---
CT Scan of the Chest without Contrast: Clinical Indication: Dyspnea Technique: Contiguous sections were acquired throughout the chest without intravenous contrast. Dose reduction technique was used on this scan by utilizing automated exposure control and iterative recon struction technique. The dose-length product (DLP) was 420.67 mGy-cm. Findings: There is no evidence of any significant mediastinal, hilar or axillary lymphadenopathy. There are ath erosclerotic calcifications of the aorta and coronary arteries. There is no evidence of pleural or pericardial effusion. 5 mm right upper lobe pulmonary nodule present (axial image 47). There is chronic scarring in the ant erior right upper lobe. Images through the upper abdomen reveal no abnormalities. There is degenerative spondylosis of the th oracic spine. Impression: 5 mm right upper lobe pulmonary nodule. According to Fleischner Society criteria, for a low-risk khai ent, consider 12 month follow-up CT. For a low-risk patient, no further follow-up required. Linear right upper lobe scarring. Reviewed, dictated and finalized at location . ACCOMMODATION CONSULTANT Impression: 5 mm right upper lobe pulmonary nodule. According to Fleischner Society criteri a, for a low-risk patient, consider 12 month follow-up CT. For a low-risk patie nt, no further follow-up required. Linear right upper lobe scarring.
== END 2024-03-21 14:11 | disposition home or self-care (01) ==
LOC: ANHIMG 14:14
PROVIDERS: PCP Family Medicine; Visit Provider Physician Assistant
DX: R06.09 Other forms of dyspnea (principal); R91.1 Solitary pulmonary nodule; J98.4 Other disorders of lung; I50.9 Heart failure, unspecified; G47.33 Obstructive sleep apnea (adult) (pediatric); Z95.1 Presence of aortocoronary bypass graft
CPT/HCPCS: 71250

== ENCOUNTER 2024-04-05 07:59 | Outpatient (CLI) | payer MEDICARE, SELFPAY | END 2024-04-05 08:00 | disposition home or self-care (01) | LOC: ANHPFT 08:07 | PROVIDERS: PCP Family Medicine; Visit Provider Physician Assistant | DX: R06.09 Other forms of dyspnea (principal) | CPT/HCPCS: 94060; 94726; 94729 ==

== ENCOUNTER 2024-06-08 08:06 | Outpatient (CLI) | payer MEDICARE, SELFPAY ==
--- OUTSIDE RECORDS SUMMARY | 2024-06-08 08:17 | XMS_ITS | Encounter Summary ---
Author Organization [facility] Address [address] [place] [address] Phone Care Team Providers Care Plastic Outfitter Name Role Phone Mian Mehta MD Primary Care Provider Encounter Details Date Type Department Care Team (Late st Contact Info) Description 05/14/2017 Orders Only [facility] ProviderHarish MD [address] [place] [id number] Social History Tobacco Use Types Packs/Day Years Used Date Smoking Tobacco: Never Smokeless Tobacco: Never Alcohol Use Standard Drinks/Week Comments Yes 0 (1 standard drink = 0.6 oz pur e alcohol) rarely Sex and Gender Information Value Date Recorded Sex Assigned at Not on file Legal Sex Male 10:17 AM PASSENGER REPRESENTATIVE Gender Identity Not on file Sexual Orientation Not on file documented as of this encounter Plan of Treatment Not on file documented as of this encounter Procedures Procedure Name Priority Date/Time Associated Diagnosis Comments DISCHARGE LABORATORY CUMULATIVE REPORT 05/14/2017 12:00 AM PASSENGER REPRESENTATIVE documented in this encounter Results * DISCHARGE LABORATORY CUMULATIVE REPORT (05/14/2017 12:00 AM PASSENGER REPRESENTATIVE) Narrative 05/14/2017 12:00 AM PASSENGER REPRESENTATIVE Ordered by an unspecified provider. Historical Provider LAB BLOOD ORDERABLES [place] l Result documented in this encounter Visit Diagnoses Not on filedocumented in this encounter Care Teams Plastic Outfitter Relationship Specialty Start Date End Date Mian Mehta MD [address] [facility] [address] [place] [address] PCP - General 11/21/11 documented as of this encounter
--- OUTSIDE RECORDS SUMMARY | 2024-06-08 08:17 | XMS_ITS | Clinical Summary ---
Author Organization [facility] Address [address] [place] [address] Care Team Providers Care Acquisitions Assistant Name Role Phone Unavailable Primary Care Provider Unavailabl e Source Comments [facility] [email or web address],non-owned Affiliates and Associated Physician Practices is amultiple site organization consisting of ambulatory clinics and hospital sitesin [place], [place], [place] and [place]. This disclosure is being madepursuant to the Care Everywhere program and may not contain all information available regarding this patient. Last updated 17.[facility] [email or web address] Social History Tobacco Use Types Packs/Day Years Used Date Smoking Tobacco: Never Assessed Sex and Gender Information Value Date Recorded Sex Assigned at Not on file Gender Identity Not on file Sexual Orientation Not on file Plan of Treatment Health Maintenance Due Date Last Done Comments COLOGUARD (AGES 45-75) - COL ON CA SCREENING 1952 COLON MONITORING 1952 COLONOSCOPY - COLON CA SCREENING 1952 CT COLONOGRAPHY - COLON CA SCREENING 1952 Colorectal Cancer Screening 1952 FIT - COLON CA SCREENING 1952 FLEX SIG - COLON CA SCREENING 1952 LIPID TESTING 1952 MEDICARE AWV 12 MONTHS 1952 HEPATITIS C SCREENING 12/25/1970 DTAP/TDAP/TD VACCINES (1 - Tdap) 12/30/1971 PNEUMOCOCCAL VACCINE 50+ (1 of 1 - PCV) 2002 ZOSTER VACCINE (1 of 2) 2002 COVID-19 VACCINE ( - 2023-2 5 season) 2023 INFLUENZA VACCINE (#1) 2023 DEPRESSION SCREENING 03/23/2024 Respiratory Syncytial Virus (RSV) Vaccine Pt: or over 60 yrs (1 - 1-dose 75+ series) 12/30/2027 HEPATITIS B VACCINE Aged Out No longe r eligible based on patient's age to complete this topic HIB VACCINE Aged Out No longer eligi ble based on patient's age to complete this topic HPV VACCINE Aged Out No longer eligi ble based on patient's age to complete this topic MENINGOCOCCAL (Group B) VACC INE SHARED DECISION-MAKING Aged Out No longer eligibl e based on patient's age to complete this topic MENINGOCOCCAL GROUPS A/C/Y/W VACCINE Aged Out No longer eligible b ased on patient's age to complete this topic
--- OUTSIDE RECORDS SUMMARY | 2024-06-08 08:17 | XMS_ITS | Referral Summary ---
Author Organization [facility] Address [address] [place] [address] Care Team Providers Care Lawyer Criminal Name Role Phone Mian Mehta MD Primary Care Provider Encounters Date Type Department Care Team Description 04/28/2024 Telephone [facility] Medical Group Cardiology [address] [place] [address] Garry Thorne MD 03/18/2024 Telephone [facility] Medical [facility] Cardiology [address] [place] [address] Mary Scott MA [employer] Assistance Approval from Last 3 Months Allergies No known active allergies Medications metoprolol (LOPRESSOR) 25 mg tablet Take 0.5 tablets (12.5 mg total) by mouth 2 (two) times a day. 60 tablet 11 05/23/2017 Active metFORMIN (GLUCOPHAGE) 500 mg tabletIndicatio ns:type 2 diabetes mellitus Take 4 tablets (2,000 mg total) by mouth nightly takes at HS Active empagliflozin (JARDIANCE) 25 mg tabletIndicatio ns:type 2 diabetes mellitus Take 1 tablet (25 mg total) by mouth daily Active nitroglycerin (NITROSTAT) 0.[address] 1 tablet (0.4 mg total) under the tongue every 5 (five) minutes as needed for chest pain Active insulin glargine 100 unit/mL (3 mL) pen for injection Inject 68 Units under the skin nightly Active spironolactone (ALDACTONE) 25 mg tablet Take 1 tablet (25 mg total) by mouth daily 30 tablet 11 08/19/2023 Active sacubitriL-vals mayra (ENTRESTO) 49-51 mg tabletIndicatio ns:chronic heart failure Take 1 tablet by mouth 2 (two) times a day 180 tablet 3 09/28/2023 Active atorvastatin (LIPITOR) 80 mg tablet TAKE 1 TABLET BY MOUTH EVERY DAY AT NIGHT 30 tablet 11 11/13/2023 Active aspirin 81 mg enteric coated tablet TAKE 1 TABLET BY MOUTH EVERY DAY 90 tablet 3 01/04/2024 Active rivaroxaban (Xarelto) 20 mg tablet TAKE 1 TABLET BY MOUTH EVERY DAY IN THE EVENING WITH MEAL 90 tablet 3 04/28/2024 Active Active Problems Problem Noted Date Diagnosed Date Ankle arthritis 05/18/2019 Essential hypertension 07/01/2017 Dyslipidemia associated with type 2 diabetes kierra litus 07/01/2017 S/P CABG (coronary artery bypass graft) 07/02/19 18 Tachycardia 07/01/2017 Coronary artery disease invo lving [place] coronary artery of [place] heart without angina pectoris 05/22/2017 Social History Tobacco Use Types Packs/Day Years Used Date Smoking Tobacco: Never Smokeless Tobacco: Never Tobacco Cessation:Counseling Given: Not Answered Alcohol Use Standard Drinks/Week Comments Yes 0 (1 standard drink = 0.6 oz pur e alcohol) rarely AUDIT-C Answer Date Recorded Q1: How often do you have a drink containing alc ohol? Monthly or less 08/06/2023 Q2: How many drinks containi ng alcohol do you have on a typical day when you are drinking? 1 or 2 08/06/2023 Q3: How often do you have si x or more drinks on one occasion? Never 08/06/2023 Personal Safety Answer Date Recorded Have you ever been in or are you currently in a harmful physical or emotional relationship or is someone making you feel afraid or unsafe? Denies 08/07/2023 Sex and Gender Information Value Date Recorded Sex Assigned at Not on file Legal Sex Male 10:17 AM ACADEMIC VICE PRESIDENT Gender Identity Not on file Sexual Orientation Not on file Last Filed Vital Signs Vital Sign Reading Time Taken Comments Blood Pressure 122/60 12/09/2023 2:10 PM CDT Pulse 83 12/09/2023 2:10 PM CDT Temperature 37.2 C (98.9 F) 08/07/2023 8:00 AM CDT Respiratory Rate 20 08/07/2023 8:00 AM CDT Oxygen Saturation 92% 12/09/2023 2:10 PM CDT Inhaled Oxygen Concentration - - Weight 110.2 kg (243 lb) 12/09/2023 2:10 PM CDT Height 175.3 cm (5' 9 ) 12/09/2023 2:10 PM CDT Body Mass Index 35.88 12/09/2023 2:10 PM CDT Plan of Treatment Not on file Medical Devices Implanted Type Area Gear Cutter Device Identifier Shelf Expiration Date Model / Serial / Lot [employer] Device Closure Vascade Od5 Fr Femoral Artery [id number] - [id number] Implanted:Qty: 1 on 08/07/2023 by Garry Thorne MD at [facility] Parudine [employer] [facility] 04/21/2025 [id number] / / [id number] Procedures Procedure Name Priority Date/Time Associated Diagnosis Comments POCT LIPID PANEL Routine 04/15/2023 10:2 0 AM ACADEMIC VICE PRESIDENT Lipid screening ALBUMIN CREATININE RATIO, URINE Routine 08/27/2017 EGFR Routine 05/23/2017 6:57 AM ACADEMIC VICE PRESIDENT HEMOGLOBIN A1C Routine 05/14/2017 12:30 PM ACADEMIC VICE PRESIDENT Coronary artery disease of [place] artery of [place] heart with stable angina pectoris from Last 3 Months or Most Recently Relevant to Health Maintenance Results * POCT lipid panel (04/15/2023 10:20 AM ACADEMIC VICE PRESIDENT) Cholesterol, POC 113 mg/dL HDL, POC 41 mg/dL Triglycerides, POC 136 mg/dL LDL Cholesterol POC 44 mg/dL Chol/HDL Ratio, POC 1.1 Non-HDL Cholesterol, POC 71 mg/dL Cholesterol Total, POC 113 mg/dL Capillary blood 04/15/2023 1 0:20 AM ACADEMIC VICE PRESIDENT Garry Thorne MD POINT OF CARE TEST ORDERABLES Fi nal Result * Microalbumin / creatinine ratio, urine, random (08/27/2017) Urine Historical Provider LAB URINE ORDERABLES Madison l Result * eGFR (05/23/2017 6:57 AM ACADEMIC VICE PRESIDENT) eGFR 76 mL/min/1.[address] Comment: Interpretive Data Reference Interval Normal >/= 90 mL/min/1.73m2 Mildly decreased* 60 - 89 mL/min/1.73m2 Mildly to moderately decreased 45 - 59 mL/min/1.73m2 Moderately to severely decreased 30 - 44 mL/min/1.73m2 Severely decreased 15 - 29 mL/min/1.73m2 Kidney Failure < 15 mL/min/1.73m2 *Relative to young adult level If -[place] multiply value by 1.16. Estimated glomerular filtration rate is determined by the CKD-EPI equation recommended by the National Kidney Foundation (KDIGO 2012 Clinical Practice Guideline for the Evaluation and Management of Chronic Kidney Disease. Kidney Intnl Suppl Mar 2012;3:1). The CKD-EPI equation should not be used for patients with unstable renal function and has not been validated in children and those over 70. Current interpretive data was last reviewed 2015. Blood specimen (specimen) 05/23/2017 6:57 AM ACADEMIC VICE PRESIDENT 05/23/2017 7:18 AM ACADEMIC VICE PRESIDENT Narrative [address] L[address] - 05/23/2017 7:38 AM ACADEMIC VICE PRESIDENT Mervat MCMAHON LAB BLOOD ORDERABLE S Final Result [address] [id number] [address] Department [place] [address] * (ABNORMAL) Hemoglobin A1c (05/14/2017 12:30 PM ACADEMIC VICE PRESIDENT) Hgb A1C 6.9(H) 4.0 - 6.0 % VI L[address] Comment: Interpretive Data Hemoglobin A1c ADA Interpretive Guidelines <7% Glycemia controlled >8% Hyperglycemia, additional action recommended Scar Immunochemical Method Current interpretive data was last revised on 2015 [facility] [address] [place] [address] Estimated Average Glucose 151 mg/dL [address] L[address] Comment:Testing performed by : [facility] [place] [address] Blood specimen (specimen) 05/14/2017 12:30 PM ACADEMIC VICE PRESIDENT 05/14/2017 8:56 PM ACADEMIC VICE PRESIDENT Narrative [address] - 05/14/2017 11:38 PM ACADEMIC VICE PRESIDENT us Aldair Stephens MD LAB BLOOD ORDERABLES Final Res ult [id number] [address] Department [place] [address] from Last 3 Months or Most Recently Relevant to Health Maintenance Insurance MEDICARE [facility] MEDICARE MEDICARE [facility] Advance Directives For more information, please contact: [phone] * Full Code (Latest Code Status on File) Date Activated Date Inactivated Comments 05/18/2017 8:36 PM 05/23/2017 4:17 PM Care Teams Lawyer Criminal Relationship Specialty Start Date End Date Mina Mehta MD [address] [address] PCP - General 11/21/11
--- OUTSIDE RECORDS SUMMARY | 2024-06-08 08:17 | XMS_ITS | Encounter Summary ---
Author Organization [facility] Address [address] [place] [address] Care Team Providers Care High Heel Builder Name Role Phone Unavailable Primary Care Provider Unavailabl e Encounter Details Date Type Department Care Team (Late st Contact Info) Description 10/22/[address] [facility] [address] [place] [id number] Thai Grier MD [address] [place] [address] Social History Tobacco Use Types Packs/Day Years Used Date Smoking Tobacco: Never Assessed Sex and Gender Information Value Date Recorded Sex Assigned at Not on file Gender Identity Not on file Sexual Orientation Not on file documented as of this encounter Plan of Treatment Not on file documented as of this encounter Procedures Procedure Name Priority Date/Time Associated Diagnosis Comments DERMATOPATHOLOGY Routine 10/19/2020 3:33 AM CDT documented in this encounter Results * DERMATOPATHOLOGY (10/19/2020 3:33 AM CDT) Case Report Dermatopathology Report Case: [id number] Authorizing Provider: Thai Girer MD Collected: 10/19/2020 03:33 AM Ordering Location: [facility] Received: 10/22/2020 12:39 PM Pathologist: Elizabeth Lazcano MD Specimen: Skin, left jehovah's witness 2:33 PM CDT DERMATOPATHOLOGY LABORATORY Final Diagnosis Specimen A. SKIN, left jehovah's witness: SQUAMOUS CELL CARCINOMA IN SITU, PRESENT AT THE BASE OF THE SPECIMEN (D04.39) (see microscopic description and comment) 2:33 PM CDT DERMATOPATHOLOGY LABORATORY Clinical History R/O SCC, fox's HAK. 1 2:33 PM CDT DERMATOPATHOLOGY LABORATORY Gross Description Specimen A: Received is one formalin filled container labeled with the patient's name and designated left jehovah's witness. The specimen consists of a shave biopsy measuring [id number] and 7b9m6sq. Jar 0. 1 2:33 PM CDT DERMATOPATHOLOGY LABORATORY Microscopic Description Specimen A. SKIN, left jehovah's witness: The epidermis shows parakeratosis, full thickness disorderly maturation of keratinocytes, mitoses at different levels, and dyskeratotic cells. The lesion extends to the base of the biopsy. COMMENT: An invasive squamous cell carcinoma cannot be ruled out. 1 2:33 PM CDT DERMATOPATHOLOGY LABORATORY Disclaimer An external and internal positive and negative controls are appropriate for the histochemical, immunohistochemical and immunofluorescence stain(s) in this case (if any), except where stated explicitly. The performance characteristics of the stain(s) cited in this report were developed and its performance characteristic determined by the Dermatopathology Laboratory at [facility], directed by Dr. Kolton Mckeon. These tests need not be, and therefore are not, approved by the [place] Food and Drug Administration. The tests are used for clinical purposes. Billing Codes Specimen Charges Stain Charges 29896 1 1 2:33 PM CDT DERMATOPATHOLOGY LABORATORY Embedded Images 1 2:33 PM CDT DERMATOPATHOLOGY LABORATORY Pathology/Cytolo gy TISSUE SPECIMEN FROM SKIN / Unknown 10/19/2020 3:33 AM CDT 10/22/2020 12:39 PM CDT Thai Grier MD LAB - PATHOLOGY/CYTO LOGY ORDERABLES DERMATOPATHOLOGY LABORATORY [facility] - Department of Dermatology [address], [address] [phone] documented in this encounter Visit Diagnoses Not on filedocumented in this encounter
--- OUTSIDE RECORDS SUMMARY | 2024-06-08 08:17 | XMS_ITS | Encounter Summary ---
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 Monthly or less 08/06/2023 4:48 PM Mary Welch RN Q2: How many drinks containing alcohol do you have on a typical day when you are drinking? 1 or 2 08/06/2023 4:48 PM Mary Welch RN Q3: How often do you have six or more drinks on one occasion? Never 08/06/2023 4:48 PM Mary Welch RN documented as of this encounter Plan of Treatment Not on file documented as of this encounter Procedures Procedure Name Priority Date/Time Associated Diagnosis Comments SCAN - LABS 08/03/2023 documented in this encounter Results * SCAN - LABS (08/03/2023) us Provider Scanning Final Result documented in this encounter Visit Diagnoses Not on filedocumented in this encounter Care Teams Search Engine Optimization Manager Relationship Specialty Start Date End Date Mian Mehta MD [address] [facility] [address] [place] [address] PCP - General 11/21/11 documented as of this encounter
--- OUTSIDE RECORDS SUMMARY | 2024-06-08 08:17 | XMS_ITS | Encounter Summary ---
Author Organization [facility] Healthcare Address [address] [place] [address] Care Team Providers Care Care Management Specialist Name Role Phone Mian Mehta MD Primary Care Provider Encounter Details Date Type Department Care Team (Late st Contact Info) Description 05/20/[address] [address] Joanna Gracia, AIME Social History Tobacco Use Types Packs/Day Years Used Date Smoking Tobacco: Never Smokeless Tobacco: Never Alcohol Use Standard Drinks/Week Comments Yes 0 (1 standard drink = 0.6 oz pur e alcohol) rarely Sex and Gender Information Value Date Recorded Sex Assigned at Not on file Legal Sex Male 10:17 AM AREA FIELD MANAGER Gender Identity Not on file Sexual Orientation Not on file documented as of this encounter Plan of Treatment Not on file documented as of this encounter Visit Diagnoses Not on filedocumented in this encounter Care Teams Care Management Specialist Relationship Specialty Start Date End Date Mian Mehta MD [address] [facility] [address] [place] [address] PCP - General 11/21/11 documented as of this encounter
--- OUTSIDE RECORDS SUMMARY | 2024-06-08 08:17 | XMS_ITS | Clinical Summary ---
Author Organization [facility] Address [address] [place] [address] Care Team Providers Care Surgical First Assistant Name Role Phone Mian Mehta MD Primary Care Provider Allergies No known active allergies Medications metoprolol [...] by mouth daily 30 tablet 11 08/19/2023 5 Active sacubitriL-vals mayra (ENTRESTO) 49-51 mg tabletIndicatio [...] Tachycardia 07/01/2017 Coronary artery disease invo lving [place] coronary artery of [place] heart without angina pectoris 05/22/2017 Encounters Date Type Department Care Team Description 04/28/2024 Telephone [facility] Medical Group Cardiology [address] [place] [phone] Garry Thorne MD 03/18/2024 Telephone [facility] Medical [address] [facility] Cardiology [address] [place] [phone] Mary Scott MA [employer] Assistance Approval from Last 3 Months Surgical History Surgery Date Site/Laterality Comments KNEE ARTHROPLASTY left knee replacement INGUINAL HERNIA REPAIR Right inguinal hernia repair JOINT REPLACEMENT Bilateral hips SINUS SURGERY PALATE SURGERY FLUORO GUIDED INJECTION ANKL E LEFT 09/29/2019 Left FLUORO GUIDED INJECTION ANKL E LEFT 05/11/2020 Left CORONARY ARTERY BYPASS GRAFT Medical History Medical History Date Comments Hx Other Medical Hypertension; h ypertensive heart disease, LVH/pacheco Hx Other Medical dyslipidemia Cardiovascular disease Coronary Artery Disease Hx Other Medical Myocardial Infa rction NSTEMI Hx Other Medical Sleep Apnea on CPAP Hyperlipidemia Hypertension Myocardial infarction (HCC) 2013 sten ts x2 Type 2 diabetes mellitus (HCC) Arthritis Sleep apnea Coronary artery disease Family History Medical History Relation Name Comments Arthritis Father Cancer Father Diabetes Father Heart disease Father Anemia Mother Arthritis Mother Diabetes Mother Heart disease Mother Hypertension Other 3 Hypertension; Diabetes type II Other 4 Diabetes Ty pe II; Relation Name Status Comments Father Mother Other 1 Alive Other 2 Alive Other 3 Other 4 Social History Tobacco Use Types Packs/Day Years [...] on file Legal Sex Male 10:17 AM LOGGING EQUIPMENT MECHANIC Gender Identity Not on file Sexual Orientation Not on file Obstetrics History Last Filed Vital Signs Vital Sign Reading [...] 12/09/2023 2:10 PM CDT Plan of Treatment Health Maintenance Due Date Last Done Comments Colon Cancer Screening-Colonoscopy 1950 Depression Screening 1950 Hepatitis C Screening 1950 Dilated Eye Exam 1950 Foot Exam 1950 DTaP/Tdap/Td Vaccine (1 - Tdap) 12/30/1963 Hepatitis B Screening 1970 Zoster Vaccine (1 of 2) 2002 Hemoglobin A1C 11/11/2017 05/14/2017 Well Visit 65+ 2017 Pneumococcal vaccine 65+ (2 of 2 - PPSV23) 03/18/2018 01/21/2018 eGFR 05/23/2018 05/23/2017, 04/2017, 05/21/2017, Additional history exists Albumin Creatinine Ratio, Urine 08/27/2018 8 Influenza Vaccine (#1) 2023 01/21/2018, 2012 Lipid Panel 04/15/2024 04/15/2023, 03/23, 03/27/2021, Additional history exists Fall Risk Assessment 08/06/2024 08/07/2023 Medical Devices Implanted Type Area Metrology Specialist Device Identifier Shelf Expiration Date Model / Serial / Lot [facility] [employer] [facility] Device Closure Vascade Od5 Fr Femoral Artery [id number] - [id number] Implanted:Qty: 1 on 08/07/2023 by Garry Thorne MD at [facility] 04/21/2025 [id number] / / [id number] Procedures Procedure Name Priority Date/Time Associated Diagnosis Comments POCT LIPID PANEL Routine 04/15/2023 10:2 0 AM LOGGING EQUIPMENT MECHANIC Lipid screening ALBUMIN CREATININE RATIO, URINE Routine 08/27/2017 EGFR Routine 05/23/2017 6:57 AM LOGGING EQUIPMENT MECHANIC HEMOGLOBIN A1C Routine 05/14/2017 12:30 PM LOGGING EQUIPMENT MECHANIC Coronary artery disease of [place] artery of [place] heart with stable angina pectoris from Last 3 Months or Most Recently Relevant to Health Maintenance Results * POCT lipid panel (04/15/2023 10:20 AM LOGGING EQUIPMENT MECHANIC) Cholesterol, POC 113 mg/dL HDL, POC 41 mg/dL Triglycerides, POC 136 mg/dL LDL Cholesterol POC 44 mg/dL Chol/HDL Ratio, POC 1.1 Non-HDL Cholesterol, POC 71 mg/dL Cholesterol Total, POC 113 mg/dL Capillary blood 04/15/2023 1 0:20 AM LOGGING EQUIPMENT MECHANIC us Garry Thorne MD POINT OF CARE TEST ORDERABLES Fi nal Result * Microalbumin / creatinine ratio, urine, random (08/27/2017) Urine Historical Provider LAB URINE ORDERABLES Madison l Result * eGFR (05/23/2017 6:57 AM LOGGING EQUIPMENT MECHANIC) eGFR 76 mL/min/1.[address] Comment: Interpretive Data Reference Interval Normal >/= 90 mL/min/1.73m2 Mildly decreased* 60 - 89 mL/min/1.73m2 Mildly to moderately decreased 45 - 59 mL/min/1.73m2 Moderately to severely decreased 30 - 44 mL/min/1.73m2 Severely decreased 15 - 29 mL/min/1.73m2 Kidney Failure < 15 mL/min/1.73m2 *Relative to young adult level If -[place] multiply value by 1.16. Estimated glomerular filtration [...] 2015. Blood specimen (specimen) 05/23/2017 6:57 AM LOGGING EQUIPMENT MECHANIC 05/23/2017 7:18 AM LOGGING EQUIPMENT MECHANIC Narrative [address] - 05/23/2017 7:38 AM LOGGING EQUIPMENT MECHANIC Mervat MCMAHON LAB BLOOD ORDERABLE S Final Result [place] [id number] [address] Department [place] [address] * (ABNORMAL) Hemoglobin A1c (05/14/2017 12:30 PM LOGGING EQUIPMENT MECHANIC) Hgb A1C 6.9(H) 4.0 - 6.0 % [address] Comment: Interpretive Data Hemoglobin A1c ADA Interpretive Guidelines <7% Glycemia controlled >8% Hyperglycemia, additional action recommended Scar Immunochemical Method Current interpretive data was last revised on 2015 Testing performed by: [facility], [address], [place] [address] Estimated Average Glucose 151 mg/dL VI L[address] Comment:Testing performed by : [facility], [address], [place] [address] Blood specimen (specimen) 05/14/2017 12:30 PM LOGGING EQUIPMENT MECHANIC 05/14/2017 8:56 PM LOGGING EQUIPMENT MECHANIC Narrative [address] - 05/14/2017 11:38 PM LOGGING EQUIPMENT MECHANIC us Aldair Stephens MD [place] [id number] [address] Department [place] [address] from Last 3 Months or Most Recently Relevant to Health Maintenance Insurance MEDICARE [facility] MEDICARE [facility] Advance Directives For more information, please contact: [phone] * Full Code (Latest Code Status on File) Date Activated Date Inactivated Comments 05/18/2017 8:36 PM 05/23/2017 4:17 PM Care Teams Surgical First Assistant Relationship Specialty Start Date End Date Mian Mehta MD [address] [facility] [address] [place] [address] PCP - General 11/21/11
[2024-06-08 08:36] LABS: Hematocrit 45.3 % (42.0-52.0); Hemoglobin 14.5 g/dL (14.0-18.0); Mean Corpuscular Hemoglobin 29.4 pg (26-34); Mean Corpuscular Volume 91.9 fl (80-100); Mean Platelet Volume 8.3 fl (7.4-10.4); Platelet Count Result 337 k/mm3 (150-375); Red Blood Count 4.93 M/mm3 (4.6-6.20); Red Cell Distribution Width 14.1 % (11.5-14.5); White Blood Count 9.7 K/mm3 (4.5-10.0)
[2024-06-08 08:38] LABS: Add Urine Microscopic? NO; Appearance Urine Clear (Clear); Bilirubin Urine Negative (Negative); Blood Urine Negative (Negative); Color Urine Yellow (Yellow); Glucose Urine UA 3+ mg/dL (Negative); Ketones Urine Negative (Negative); Leukocyte Esterase Ur Negative LEU/UL (Negative); Nitrate Urine Negative (Negative); Protein Urine Negative (Negative); Specific Grav Ur 1.028 (1.001-1.035); Urobilinogen Urine 0.2 mg/dL (<2.0); pH Urine 5.5 (5.0-9.0)
[2024-06-08 08:46] LABS: Alanine Aminotransferase 28 U/L (6-50); Albumin Level 4.4 g/dL (3.5-5.1); Alkaline Phosphatase 47 U/L (38-126); Anion Gap 10 mmol/L (4-12); Aspartate Amino Transferase 32 U/L (17-59); Bilirubin,Total 0.8 mg/dL (0.2-1.3); Blood Urea Nitrogen 12 mg/dL (9-20); Calcium 9.4 mg/dL (8.4-10.2); Carbon Dioxide 27 mmol/L (22-30); Chloride 101 mmol/L (98-107); Cholesterol 110 mg/dL (0-200); Estimated Glomerular Filt Rate > 60; Glucose 121 mg/dL (65-110); HDL Direct 41 mg/dL; Potassium 4.5 mmol/L (3.4-5.0); Sodium 138 mmol/L (137-145); Triglycerides 160 mg/dL (<150)
[2024-06-08 08:57] LABS: LDL Cholesterol Direct 43 mg/dL
[2024-06-08 09:00] LABS: Hemoglobin A1C 7.2 % (<5.7)
[2024-06-08 09:17] LABS: Prostate Specific Antigen 0.8 ng/mL (< OR = 4.0)
[2024-06-08 09:37] LABS: Microalbumin Urine Random 14.3 mg/L (0-16.7)
[2024-06-08 09:48] LABS: Creatinine Urine 59.6 mg/dL
== END 2024-06-08 08:07 | disposition home or self-care (01) ==
LOC: ANHLAB 08:09
PROVIDERS: PCP Family Medicine; Visit Provider Family Medicine
DX: E11.65 Type 2 diabetes mellitus with hyperglycemia (principal); E78.2 Mixed hyperlipidemia; I11.9 Hypertensive heart disease without heart failure; Z00.00 Encounter for general adult medical examination without abnormal findings; R35.1 Nocturia; Z12.5 Encounter for screening for malignant neoplasm of prostate; K64.5 Perianal venous thrombosis
CPT/HCPCS: 36415; 80053; 80061; 81003; 82043; 83036; 84153; 84443; 85027

== ENCOUNTER 2024-09-21 07:19 | Outpatient (CLI) | payer MEDICARE, SELFPAY ==
--- OUTSIDE RECORDS SUMMARY | 2024-09-21 07:22 | XMS_ITS | Clinical Summary ---
[facility] Organization [facility] Address [address] [place] [address] Care Team Providers Care Cloth Winder Name Role Phone Mian Mehta MD Primary Care Provider Allergies No known active allergies Medications metoprolol (LOPRESSOR) 25 mg tablet Take 0.5 tablets (12.5 mg total) by mouth 2 (two) times a day. 60 tablet 11 8 Active metFORMIN (GLUCOPHAGE) 500 mg tabletIndicati ons:type 2 diabetes mellitus Take 4 tablets (2,000 mg total) by mouth nightly takes at HS Active empagliflozin (JARDIANCE) 25 mg tabletIndicati ons:type 2 diabetes mellitus Take 1 tablet (25 mg total) by mouth daily Active nitroglycerin (NITROSTAT) 0.[address] 1 tablet (0.4 mg total) under the tongue every 5 (five) minutes as needed for chest pain Active insulin glargine 100 unit/mL (3 mL) pen for injection Inject 68 Units under the skin nightly Active sacubitriL-deshawn sartan (ENTRESTO) 49-51 mg tabletIndicati ons:chronic heart failure Take 1 tablet by mouth 2 (two) times a day 180 tablet 3 4 Active aspirin 81 mg enteric coated tablet TAKE 1 TABLET BY MOUTH EVERY DAY 90 tablet 3 4 Active rivaroxaban (Xarelto) 20 mg tablet TAKE 1 TABLET BY MOUTH EVERY DAY IN THE EVENING WITH MEAL 90 tablet 3 5 Active spironolactone (ALDACTONE) 25 mg tablet TAKE 1 TABLET (25 MG TOTAL) BY MOUTH DAILY. 90 tablet 3 5 06/09/19 26 Active atorvastatin (LIPITOR) 80 mg tablet TAKE 1 TABLET BY MOUTH EVERY DAY AT NIGHT 90 tablet 3 5 Active atorvastatin (LIPITOR) 80 mg tablet TAKE 1 TABLET BY MOUTH EVERY DAY AT NIGHT 30 tablet 11 4 09/15/19 25 Discontinued Active Problems Problem Noted Date Diagnosed Date Ankle arthritis 05/18/2019 Essential hypertension 07/01/2017 Dyslipidemia associated with type 2 diabetes kierra litus 07/01/2017 S/P CABG (coronary artery bypass graft) 07/02/19 18 Tachycardia 07/01/2017 Coronary artery disease invo [place]ving [place] coronary artery of [place] heart without angina pectoris 05/22/2017 Surgical History Surgery Date Site/Laterality Comments KNEE [...] on CPAP Hyperlipidemia Hypertension Myocardial infarction (HCC) 2014 sten ts x2 Type 2 diabetes mellitus [...] on file 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 Gender Identity Not on file Sexual Orientation [...] 2:10 PM CDT Height 175.3 cm (5' 9) 12/09/2023 2:10 PM CDT Body Mass Index [...] exists Albumin Creatinine Ratio, Urine 08/27/2018 8 Lipid Panel 04/15/2024 04/15/2023, 03/23, 03/27/2021, Additional history exists Fall Risk Assessment 08/06/2024 08/07/2023 Influenza Vaccine (#1) 2024 01/21/2018, 2012 Medical Devices Implanted Type Area Physician President Device Identifier Shelf Expiration Date Model / Serial / Lot Elivar Device Closure Vascade Od5 Fr Femoral Artery [id number] - [id number] Implanted:Qty: 1 on 08/07/2023 by Garry Thorne MD at [facility] [employer] [facility] 04/21/2025 [id number] / / [id number] Procedures Procedure Name Priority Date/Time Associated Diagnosis Comments POCT LIPID PANEL Routine 04/15/2023 10:2 0 AM AUTOMOBILE ASSEMBLER Lipid screening ALBUMIN CREATININE RATIO, URINE Routine 08/27/2017 EGFR Routine 05/23/2017 6:57 AM AUTOMOBILE ASSEMBLER HEMOGLOBIN A1C Routine 05/14/2017 12:30 PM AUTOMOBILE ASSEMBLER Coronary artery disease of [place] artery of [place] heart with stable angina pectoris from Last 3 Months or Most Recently Relevant to Health Maintenance Results * POCT lipid panel (04/15/2023 10:20 AM AUTOMOBILE ASSEMBLER) Cholesterol, POC 113 mg/dL HDL, POC 41 mg/dL Triglycerides, POC 136 mg/dL LDL Cholesterol POC 44 mg/dL Chol/HDL Ratio, POC 1.1 Non-HDL Cholesterol, POC 71 mg/dL Cholesterol Total, POC 113 mg/dL Capillary blood 04/15/2023 1 0:20 AM AUTOMOBILE ASSEMBLER Garry Thorne MD POINT OF CARE TEST ORDERABLES Fi nal Result * Microalbumin / creatinine ratio, urine, random (08/27/2017) Urine Harish Provider LAB URINE ORDERABLES Madison l Result * eGFR (05/23/2017 6:57 AM AUTOMOBILE ASSEMBLER) eGFR 76 mL/min/1.[address] Comment: Interpretive Data Reference Interval Normal >/= 90 mL/min/1.73m2 Mildly decreased* 60 - 89 mL/min/1.73m2 Mildly to moderately decreased 45 - 59 mL/min/1.73m2 Moderately to severely decreased 30 - 44 mL/min/1.73m2 Severely decreased 15 - 29 mL/min/1.73m2 Kidney Failure < 15 mL/min/1.73m2 *Relative to young adult level If -[place] multiply value by 1.16. Estimated glomerular filtration [...] 2015. Blood specimen (specimen) 05/23/2017 6:57 AM AUTOMOBILE ASSEMBLER 05/23/2017 7:18 AM AUTOMOBILE ASSEMBLER Narrative VI LANE - 05/23/2017 7:38 AM AUTOMOBILE ASSEMBLER Mervat MCMAHON LAB BLOOD ORDERABLE S Final Result [address] [id number] [address] Santiago Department [place] [address] * (ABNORMAL) Hemoglobin A1c (05/14/2017 12:30 PM AUTOMOBILE ASSEMBLER) Hgb A1C 6.9(H) 4.0 - 6.0 % VI LANE Comment: Interpretive Data Hemoglobin A1c ADA Interpretive Guidelines <7% Glycemia controlled >8% Hyperglycemia, additional action recommended Scar Immunochemical Method Current interpretive data was last revised on 2015 [facility] [place] [address] Estimated Average Glucose 151 mg/dL VI LANE Comment:Testing performed by : [facility] [address], [place] [address] Blood specimen (specimen) 05/14/2017 12:30 PM AUTOMOBILE ASSEMBLER 05/14/2017 8:56 PM AUTOMOBILE ASSEMBLER Narrative VI L[address] - 05/14/2017 11:38 PM AUTOMOBILE ASSEMBLER us Aldair Stephens MD LAB [place] [id number] Oscar Department [place] [address] from Last 3 Months or Most Recently Relevant to Health Maintenance Insurance MEDICARE [facility] MEDICARE MEDICARE [facility] Advance Directives For more information, please contact: [phone] * Full Code (Latest Code Status on File) Date Activated Date Inactivated Comments 05/18/2017 8:36 PM 05/23/2017 4:17 PM Care Teams Cloth Winder Relationship Specialty Start Date End Date Mian Mehta MD [address] [address] [facility] - General 11/21/11
--- OUTSIDE RECORDS SUMMARY | 2024-09-21 07:22 | XMS_ITS | Encounter Summary ---
Author Organization [facility] Address [address] [place] [address] Phone Care Team Providers Care Boilermaker Name Role Phone Mian Mehta MD Primary Care Provider Encounter Details Date Type Department Care Team (Late st Contact Info) Description 05/14/2017 Orders Only [facility] ProviderHarish MD [address] [place] [address] Social History Tobacco Use Types Packs/Day Years Used Date Smoking Tobacco: Never Smokeless Tobacco: Never Alcohol Use Standard Drinks/Week Comments Yes 0 (1 standard drink = 0.6 oz pur e alcohol) rarely Sex and Gender Information Value Date Recorded Sex Assigned at Not on file 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 Historical Provider LAB BLOOD ORDERABLES Madison l Result documented in this encounter Visit Diagnoses Not on filedocumented in this encounter Care Teams Boilermaker Relationship Specialty Start Date End Date Mian Mehta MD [address] [facility] [address] [place] [address] PCP - General 11/21/11 documented as of this encounter
--- OUTSIDE RECORDS SUMMARY | 2024-09-21 07:22 | XMS_ITS | Clinical Summary ---
Author Organization [facility] Address [address] [place] [address] Care Team Providers Care Roof Cement And Paint Maker Helper Name Role Phone Unavailable Primary Care Provider Unavailabl e Source Comments [facility] [employer],non-owned Affiliates and Associated Physician Practices is amultiple site organization consisting of ambulatory clinics and hospital sitesin [place], [place], [place] and [place]. This disclosure is being madepursuant to the Care Everywhere program and may not contain all information available regarding this patient. Last updated 17.[facility] [employer] Social History Tobacco Use Types Packs/Day Years Used Date Smoking Tobacco: Never Assessed Sex and Gender Information Value Date Recorded Sex Assigned at Not on file Legal Sex Male 12:31 PM CDT Gender Identity Not on file Sexual Orientation [...] VACCINE ( - 2023-2 5 season) 2023 DEPRESSION SCREENING 03/23/2024 INFLUENZA VACCINE (Season Ended) 2024 Respiratory Syncytial Virus (RSV) Vaccine Pt: or [...] on patient's age to complete this topic Insurance MEDICARE [facility] MEDICARE
--- OUTSIDE RECORDS SUMMARY | 2024-09-21 07:22 | XMS_ITS | Encounter Summary ---
Author Organization [facility] Address [address] [place] [address] Care Team Providers Care Physician Representative Name Role Phone Mian Mehta MD Primary Care Provider Encounter Details Date Type Department Care Team (Late st Contact Info) Description 07/23/2017 Orders Only [facility] Information Management [address] [place] [address] Scanning, Provider Social History Tobacco Use Types Packs/Day Years Used Date Smoking Tobacco: Never Smokeless Tobacco: Never Alcohol Use Standard Drinks/Week Comments Yes 0 (1 standard drink = 0.6 oz pur e alcohol) rarely Sex and Gender Information Value Date Recorded Sex Assigned at Not on file 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 Gender Identity Not on file Sexual Orientation Not on file documented as of this encounter Plan of Treatment Not on file documented as of this encounter Procedures Procedure Name Priority Date/Time Associated Diagnosis Comments SCAN - LABS 07/23/2017 CARDIOLOGY DOCUMENT SCAN 07/23/2017 documented in this encounter Results * SCAN - LABS (07/23/2017) us Provider Scanning Final Result * Cardiology Document Scan (07/23/2017) Anatomical Region Laterality Modality Other us Provider Scanning CV CARDIAC SERVICES PROCEDURES Final Result documented in this encounter Visit Diagnoses Not on filedocumented in this encounter Care Teams Physician Representative Relationship Specialty Start Date End Date Mehta, Mian Isiah, MD [address] [facility] [address] [place] [address] PCP - General 11/21/11 documented as of this encounter
--- OUTSIDE RECORDS SUMMARY | 2024-09-21 07:22 | XMS_ITS | Referral Summary ---
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 Gender Identity Not on file Sexual Orientation [...] on file Medical Devices Implanted Type Area News Reporter Device Identifier Shelf Expiration Date Model / Serial / Lot [facility] Device Closure Vascade Od5 Fr Femoral Artery [id number] - [id number] Implanted:Qty: 1 on 08/07/2023 by Garry Thorne MD at [facility] 04/21/2025 [id number] / / [id number] Procedures Procedure Name Priority Date/Time Associated Diagnosis Comments POCT LIPID PANEL Routine 04/15/2023 10:2 0 AM ASSEMBLER WET WASH Lipid screening ALBUMIN CREATININE RATIO, URINE Routine 08/27/2017 EGFR Routine 05/23/2017 6:57 AM ASSEMBLER WET WASH HEMOGLOBIN A1C Routine 05/14/2017 12:30 PM ASSEMBLER WET WASH Coronary artery disease of [place] artery of [place] heart with stable angina pectoris from Last 3 Months or Most Recently Relevant to Health Maintenance Results * POCT lipid panel (04/15/2023 10:20 AM ASSEMBLER WET WASH) Cholesterol, POC 113 mg/dL HDL, POC 41 mg/dL Triglycerides, POC 136 mg/dL LDL Cholesterol POC 44 mg/dL Chol/HDL Ratio, POC 1.1 Non-HDL Cholesterol, POC 71 mg/dL Cholesterol Total, POC 113 mg/dL Capillary blood 04/15/2023 1 0:20 AM ASSEMBLER WET WASH Garry Thorne MD POINT OF CARE TEST ORDERABLES Fi nal Result * Microalbumin / creatinine ratio, urine, random (08/27/2017) Urine Historical Provider LAB URINE ORDERABLES Madison l Result * eGFR (05/23/2017 6:57 AM ASSEMBLER WET WASH) eGFR 76 mL/min/1.[address] Comment: Interpretive Data Reference Interval Normal >/= 90 mL/min/1.73m2 Mildly decreased* 60 - 89 mL/min/1.73m2 Mildly to moderately decreased 45 - 59 mL/min/1.73m2 Moderately to severely decreased 30 - 44 mL/min/1.73m2 Severely decreased 15 - 29 mL/min/1.73m2 Kidney Failure < 15 mL/min/1.73m2 *Relative to young adult level If -[place] multiply value by 1.16. Estimated glomerular filtration [...] 2015. Blood specimen (specimen) 05/23/2017 6:57 AM ASSEMBLER WET WASH 05/23/2017 7:18 AM ASSEMBLER WET WASH Narrative VI L[address] - 05/23/2017 7:38 AM ASSEMBLER WET WASH Mervat MCMAHON LAB BLOOD [place]ABLE [place] VI [id number] [address] Department [place] [address] * (ABNORMAL) Hemoglobin A1c (05/14/2017 12:30 PM ASSEMBLER WET WASH) Hgb A1C 6.9(H) 4.0 - 6.0 % VI Comment: Interpretive Data Hemoglobin A1c ADA Interpretive Guidelines <7% Glycemia controlled >8% Hyperglycemia, additional action recommended Scar Immunochemical Method Current interpretive data was last revised on 2015 [facility] [place] [address] Estimated Average Glucose 151 mg/dL VI LANE Comment:Testing performed by : [facility], [address] [place] [address] Blood specimen (specimen) 05/14/2017 12:30 PM ASSEMBLER WET WASH 05/14/2017 8:56 PM ASSEMBLER WET WASH Narrative VI L[address] - 05/14/2017 11:38 PM ASSEMBLER WET WASH us Aldair Stephens MD LAB [place] [id number] [address] Department [place] [address] from Last 3 Months or Most Recently Relevant to Health Maintenance Insurance [facility]IC[facility] Advance Directives For more information, please contact: [phone] * Full Code (Latest Code Status on File) Date Activated Date Inactivated Comments 05/18/2017 8:36 PM 05/23/2017 4:17 PM Care Teams Data Collector Relationship Specialty Start Date End Date Mian Mehta MD [address] [facility] [address] [facility] [address] [place] [address] PCP - General 11/21/11
--- OUTSIDE RECORDS SUMMARY | 2024-09-21 07:22 | XMS_ITS | Encounter Summary ---
Author Organization [facility] Address [address] [place] [address] Care Team Providers Care Lead Press Operator Name Role Phone Mian Mehta MD Primary Care Provider Encounter Details Date Type Department Care Team (Late st Contact Info) Description 05/20/[address] [address] Joanna Gracia, AIME Social History Tobacco Use Types Packs/Day Years Used Date Smoking Tobacco: Never Smokeless Tobacco: Never Alcohol Use Standard Drinks/Week Comments Yes 0 (1 standard drink = 0.6 oz pur e alcohol) rarely Sex and Gender Information Value Date Recorded Sex Assigned at Not on file 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
--- OUTSIDE RECORDS SUMMARY | 2024-09-21 07:22 | XMS_ITS | Encounter Summary ---
Author Organization [facility] Address [address] [place] [address] Care Team Providers Care Pulp Roller Name Role Phone Unavailable Primary Care Provider Unavailabl e Encounter Details Date Type Department Care Team (Late st Contact Info) Description 10/22/2020 Lab Requisition [facility] [address] [place] [id number] Thai Grier MD [address] [place] [address] Social History Tobacco Use Types [...] AM CDT) Case Report Dermatopathology Report Case: [id number] Authorizing Provider: Thai Grier MD Collected: 10/19/2020 03:33 AM Ordering Location: [facility] Received: 10/22/2020 12:39 PM Pathologist: Elizabeth Lazcano MD Specimen: Skin, left anabaptist 1 2:33 PM CDT DERMATOPATHOLOGY LABORATORY Final Diagnosis Specimen A. SKIN, left anabaptist: SQUAMOUS CELL CARCINOMA IN SITU, PRESENT AT THE BASE OF THE SPECIMEN (D04.39) (see microscopic description and comment) 1 2:33 PM CDT DERMATOPATHOLOGY LABORATORY at 1433 CDT Clinical History R/O SCC, fox's HAK. 1 2:33 PM CDT DERMATOPATHOLOGY LABORATORY Gross Description Specimen A: Received is one formalin filled container labeled with the patient's name and designated left anabaptist. The specimen consists of a shave biopsy measuring [id number] and 2f3k2mm. Jar 0. 1 2:33 PM CDT DERMATOPATHOLOGY LABORATORY Microscopic Description Specimen A. SKIN, left anabaptist: The epidermis shows parakeratosis, full thickness disorderly [...] characteristic determined by the Dermatopathology Laboratory at [facility], directed by Dr. Kolton Mckeon. These tests need not be, and therefore are not, approved by the [place] Food and Drug Administration. The tests are used for clinical purposes. Billing Codes Specimen Charges Stain Charges 57320 1 1 2:33 PM CDT DERMATOPATHOLOGY LABORATORY Embedded Images 1 2:33 PM CDT DERMATOPATHOLOGY LABORATORY Pathology/Cytolo gy TISSUE SPECIMEN FROM SKIN / Unknown 10/19/2020 3:33 AM CDT 10/22/2020 12:39 PM CDT us Thai Grier MD LAB - PATHOLOGY/CYTOLOGY ORD ERABLES Final Result DERMATOPATHOLOGY LABORATORY [facility] - Department of Dermatology [address] [place] [address], [facility] [place] [phone] documented in this encounter Visit Diagnoses Not on filedocumented in this encounter
[2024-09-21 07:54] LABS: Alanine Aminotransferase 25 U/L (6-50); Albumin Level 4.2 g/dL (3.5-5.1); Alkaline Phosphatase 40 U/L (38-126); Anion Gap 10 mmol/L (4-12); Aspartate Amino Transferase 33 U/L (17-59); Bilirubin,Total 0.8 mg/dL (0.2-1.3); Blood Urea Nitrogen 10 mg/dL (9-20); Calcium 9.3 mg/dL (8.4-10.2); Carbon Dioxide 24 mmol/L (22-30); Chloride 105 mmol/L (98-107); Estimated Glomerular Filt Rate > 60; Glucose 141 mg/dL (65-110); Potassium 4.4 mmol/L (3.4-5.0); Sodium 139 mmol/L (137-145); Total Protein 7.4 g/dL (6.3-8.2)
[2024-09-21 08:17] LABS: Hemoglobin A1C. 7.4 % (<5.7)
== END 2024-09-21 07:20 | disposition home or self-care (01) ==
PROVIDERS: PCP Family Medicine; Visit Provider Family Medicine
DX: E11.65 Type 2 diabetes mellitus with hyperglycemia (principal); Z79.4 Long term (current) use of insulin
CPT/HCPCS: 36415; 80053; 83036

== ENCOUNTER 2025-01-27 08:20 | Outpatient (CLI) | payer MEDICARE, SELFPAY ==
[2025-01-27 09:12] LABS: Alanine Aminotransferase 33 U/L (6-50); Albumin Level 4.6 g/dL (3.5-5.1); Alkaline Phosphatase 44 U/L (38-126); Anion Gap 11 mmol/L (4-12); Aspartate Amino Transferase 39 U/L (17-59); Bilirubin,Total 0.9 mg/dL (0.2-1.3); Blood Urea Nitrogen 11 mg/dL (9-20); Calcium 9.3 mg/dL (8.4-10.2); Carbon Dioxide 22 mmol/L (22-30); Chloride 103 mmol/L (98-107); Estimated Glomerular Filt Rate > 60; Glucose 91 mg/dL (65-110); Potassium 4.8 mmol/L (3.4-5.0); Sodium 136 mmol/L (137-145); Total Protein 7.8 g/dL (6.3-8.2)
[2025-01-27 10:00] LABS: Hemoglobin A1C 6.2 % (<5.7)
== END 2025-01-27 08:21 | disposition home or self-care (01) ==
LOC: ANHLAB 08:21
PROVIDERS: PCP Family Medicine; Visit Provider Family Medicine
DX: E11.65 Type 2 diabetes mellitus with hyperglycemia (principal)
CPT/HCPCS: 36415; 80053; 83036

== ENCOUNTER 2025-02-06 07:41 | Outpatient (CLI) | payer MEDICARE, SELFPAY ==
--- NOTE | 2025-03-01 07:53 | WPDSLEEPSTUD ---
Sleep Study Date of Study: 02/06/25 Ordering Provider: ERIC Adams Interpreting Physician: Jaquelin Mckee DO Sleep Study Type: Polysomnogram Height: 1.75 m Weight: 107.048 kg Body Mass Index: 34.8 Neck Circumference (inches): 20 Lindsay: 2 Reason for Sleep Study Needs updated study to get new CPAP equipment Sleep History The patient is a 74-year-old male that had a sleep study ordered by the pulmonary group for evaluation of sleep apnea. The patient occasionally awakens from sleep short of breath. He denies awakening at night with heartburn, belching or cough. He constantly snores loudly enough that others complain. He denies having trouble sleeping when he has a cold. He occasionally wakes up gasping for air throughout the night. He denies having breathing problems at night observed by himself or others. He denies sweating excessively at night. He denies having heart palpitations or irregular heartbeats during the night. He frequently falls asleep during the day but never while driving. He denies sleep paralysis, cataplexy and hypnagogic/ hypnopompic hallucinations. He denies having trouble at school or work due to sleepiness. He denies feeling afraid of going to sleep. He denies having nightmares. He denies remembering his dreams. He occasionally has thoughts racing through his mind. He rarely feels sad or depressed. He occasionally has anxiety. He denies having muscular tension. He denies noticing parts of his body jerk. He denies kicking during the night. He denies having crawling and aching feelings in his legs and denies having leg pain during the night. He rarely grinds his teeth during sleep but occasionally awakens with morning jaw pain. He denies being bothered by pain during the day and denies being awakened by pain during the night. He denies waking up feeling stiff in the morning. He denies waking up with sore or achy muscles. He denies waking up with pain in the neck, spine or other joints. He goes to bed at 10:00 p.m. every night. It takes him 30 minutes to fall asleep. He wakes up twice throughout the night to urinate and is able to fall back asleep within 5 minutes. He wakes up at 8:00 a.m. every morning. He typically gets 9 hours of sleep per night. He will stay in bed for 5 minutes after waking up in the morning. He currently lives with his adult daughter. He denies consuming any caffeinated beverages within 2 hours of bedtime. He denies engaging in physical exercise before bedtime. He denies reading before falling asleep. He will watch television before falling asleep. He will take naps in afternoon or the evening but they are not refreshing. He consumes 1 caffeinated beverage per day. He denies tobacco, alcohol and recreational drug use. [facility] Past Medical History Medical History Hypertensive heart disease with heart failure CHF (congestive heart failure) Hamstring tendon rupture Long-term insulin use Controlled diabetes mellitus Osteoarthritis of ankle High cholesterol Heart disease HTN (hypertension) Heart attack Diabetes Surgical History Surgical History H/O knee surgery History of hip replacement History of open heart surgery H/O hernia repair Family History Family History Father Family history of diabetes mellitus in first degree relative Family history of coronary artery disease Heart attack History of open heart surgery Cancer Diabetes mellitus Mother Family history of diabetes mellitus in first degree relative Kidney failure CHF (congestive heart failure) Unknown Diabetes mellitus Heart disease Cerebrovascular accident Hypertension Kidney disease Social History Social History Smoking status: Never smoker Second hand tobacco smoke exposure: No Alcohol intake: current Alcohol use details: rare Substance use: never Substance use type: does not use Living arrangements: with family Additional living arrangements comments: daughter Occupation/Education: retired Gender identity (if verbalized by the patient): Male Sexual Orientation (if Verbalized by the Patient): Straight or Heterosexual Spiritual care concerns: No Medications Home Medications ?Medication ?Instructions ?Recorded ?Confirmed ?Type lancets (Microlet Lancet) #200 ea 05/09/19 02/08/25 Rx blood-glucose meter #1 ea 10/27/19 02/08/25 Rx blood sugar diagnostic (True See Rx Instructions .Route 03/01/21 02/08/25 Rx Metrix Glucose Test Strip) .COMPLEX #100 ea aspirin 81 mg tablet 81 mg PO DAILY 12/09/22 02/08/25 History atorvastatin 80 mg tablet 80 mg PO HS 12/09/22 02/08/25 History cetirizine 10 mg tablet (Zyrtec) 10 mg PO DAILY 12/09/22 02/08/25 History rivaroxaban 20 mg tablet (Xarelto) 20 mg PO QPM 12/09/22 02/08/25 History insulin syringe-needle U-100 1 mL #100 ea 05/15/23 02/08/25 Rx 31 gauge x 5/16 (BD Insulin Syringe Ultra-Fine) sacubitril 49 mg-valsartan 51 mg 1 tablet PO BID 10/09/23 02/08/25 History tablet (Entresto) spironolactone 25 mg tablet 25 mg PO DAILY 10/09/23 02/08/25 History albuterol sulfate 90 mcg/actuation 1 - 2 puff inhalation Q4-6H PRN 03/08/24 02/08/25 Rx aerosol inhaler shortness of breath or wheezing #8.5 grams insulin glargine 100 unit/mL (3 68 unit (0.68 mL) subcut QPM #250 05/02/24 02/08/25 Rx mL) subcutaneous pen (Basaglar mL KwikPen U-100 Insulin) tiotropium bromide 2.5 2 inh inhalation QAM #4 grams 07/11/24 02/08/25 Rx mcg/actuation mist for inhalation (Spiriva Respimat) azelastine 137 mcg (0.1 %) nasal See Rx Instructions .Route 09/02/24 02/08/25 Rx spray .COMPLEX #90 mL blood sugar diagnostic (Blood #100 ea 11/01/24 02/08/25 Rx Glucose Test strips) metformin 500 mg tablet,extended 2,000 mg (4 x 500 mg) PO QPM #360 11/27/24 02/08/25 Rx release 24 hr tabs pen needle, diabetic 31 gauge x #100 ea 12/12/24 02/08/25 Rx 5/16 (Ultra-Fine Pen Needle) eszopiclone 2 mg tablet (Lunesta) 2 mg PO ONCE #1 tablet 12/23/24 02/08/25 Rx semaglutide 2 mg/dose (8 mg/3 mL) 2 mg (0.75 mL) subcut WEEKLY #3 mL 12/26/24 02/08/25 Rx subcutaneous pen injector metoprolol tartrate 25 mg tablet See Rx Instructions .Route 01/24/25 02/08/25 Rx .COMPLEX #180 tabs empagliflozin 25 mg tablet 25 mg PO DAILY #90 tabs 02/13/25 Rx (Jardiance) Sleep Procedure A full night polysomnogram using the Evocalize multi-channel system recorded the standard physiologic parameters including EEG, EOG, submentalis EMG, anterior tibialis EMG, EKG, body position, nasal and oral airflow using nasal pressure sensor and thermistor.? Respiratory parameters of chest and abdominal movements were recorded with Respiratory Inductance Plethysmography belts. Oxygen saturation was recorded by pulse oximetry. Video monitoring was also performed. Sleep stages, periodic limb movements, and EEG arousals were scored in 30 second epochs according to the criteria of the AASM Scoring Manual. The Apnea-Hypopnea Index was calculated using CMS guidelines for definition of hypopnea with 4% O2 desaturations while scoring respiratory events. Sleep Architecture The total recording time was 461.0 minutes.? The total sleep time was 291.5 minutes. Sleep latency was 27.4 minutes. REM latency was 145.5 minutes. Sleep efficiency was 63.2%. The patient had 49 awakenings for an awakening index of 10.1. Wake after sleep onset time was 142.0 minutes. The patient spent 45.0 minutes, 15.4% of total sleep time in Stage N1. The patient spent 178.5 minutes, 61.2% in Stage N2. The patient spent 0.0 minutes, 0.0% in Stage N3. The patient spent 68.0 minutes, 23.3% in Stage REM sleep. Respiratory Analysis The patient had 69 hypopneas for an overall Apnea Hypopnea Index of 14.2. The REM Apnea Hypopnea Index was 45.9. The NREM Apnea Hypopnea Index was 7.5. The patient had a Central Apnea Hypopnea Index of 0. There was no evidence of Kanu-Barton Respirations. Arousals There were 129 total arousals for an arousal index of 26.6. There were 37 spontaneous arousals for an index of 7.6. There were 35 arousals due to respiratory events for an index of 7.2. There were 34 arousals due to periodic limb movements for an index of 7.0.? There were 21 arousals due to isolated limb movements for an index of 4.3. Periodic Limb Movements The patient had 76 isolated limb movements with an index of 15.6. The patient had 253 periodic limb movements with an index of 52.1, which is elevated (normal < 15). Patient had a total of 329 limb movements with a total limb movement index of 67.7. Oximetry Data The patient had an average oxygen saturation of 90.9% in sleep with a minimum oxygen saturation of 84.0% and a maximum oxygen saturation of 97.0%. The patient had 69 oxygen desaturations that were 4% or greater resulting in an Oxygen Desaturation Index of 14.2.? The patient spent 18.3 minutes, 4% of total sleep time with an oxygen saturation below 88%. Snoring Profile Mild snoring was present throughout the study. Cardiac Profile The EKG showed normal sinus rhythm with ST depression. No arrhythmias or premature beats were seen. The patient had an average pulse rate of 77.8 bpm with a minimum pulse of rate of 70.0 bpm and a maximum pulse rate of 90.0 bpm.? EEG Profile No signs of seizure activity seen. Assessment and Plan Assessment and Plan (1) CASIMIRO (obstructive sleep apnea): Code(s): G47.33 - Obstructive sleep apnea (adult) (pediatric) Status: Acute Assessment and Plan: The patient had an overall AHI of 14.2 with desaturation down to 84%. This is consistent with mild sleep apnea. Due to the patient's diabetes, he qualifies for treatment. I recommend that the patient have a CPAP Titration study with the use of a hypnotic to ensure we obtain enough sleep data and find an optimal pressure setting. Data The data obtained during this sleep study is adequate for interpretation. Certification This sleep study has been reviewed by a board certified sleep medicine physician.
[2025-03-06 16:05] VITALS: BMI 34.8
== END 2025-02-07 06:44 | disposition home or self-care (01) ==
PROVIDERS: PCP Family Medicine; Visit Provider Physician Assistant
DX: G47.33 Obstructive sleep apnea (adult) (pediatric) (principal)
CPT/HCPCS: 95810